=== PATIENT | female | born 1980 | race Caucasian/White ===

== ENCOUNTER 2022-04-13 15:14 | Inpatient (IN) | payer MEDICAID, SELFPAY ==
[2022-04-13 15:15] VITALS: BP 104/72; PULSE 86; RESP 16; TEMP 36.6; O2SAT 100; BMI 25.1
--- NOTE | 2022-04-13 17:08 | EX.ED.DYSGE1 ---
HPI History of Present Illness Chief Complaint: Substance Abuse Informant: patient Narrative Narrative: Patient presents requesting detox from heroin. She has been using IV heroin for the last year. She had been clean for several years prior to this but relapsed after losing her father. Last use was at 7 AM this morning. She reports use of meth only on a couple occasions in the past. Denies any other drug use. PFSH PFSH no medical history Allergy/AdvReac Type Severity Reaction Status Date / Time No Known Allergies Allergy Verified 04/13/22 15:16 Surgical History History of partial hysterectomy ROS ROS ED Constitutional Constitutional ED: Denies chills or fever(s) Eyes Eyes: Denies change in vision or discharge from eye(s) ENT ENT ED: Denies discharge from eye(s), rhinorrhea or sore throat Cardiovascular Cardiovascular: Denies chest pain or palpitations Respiratory/Chest Respiratory/Chest: Denies cough or dyspnea Gastrointestinal Gastrointestinal: Denies abdominal pain, diarrhea, nausea or vomiting Genitourinary Genitourinary ED: Denies difficulty urinating or dysuria Musculoskeletal Musculoskeletal: Denies back pain or extremity pain Integumentary Denies Abrasions or rash Neurologic Neurologic: Denies headache(s) or weakness Psychiatric Psychiatric: Denies anxiety or depression Allergic/Immunologic Allergic/Immunologic ED: Denies lip swelling or urticaria EXAM Physical Exam Const Vital Signs: 04/13/22 15:15 Temperature 97.8 F Temperature Source Temporal Pulse Rate 86 Respiratory Rate 16 Blood Pressure 104/72 Blood Pressure Mean 82 Pulse Ox 100 Oxygen Delivery Method Room Air Positive well nourished and well developed General Appearance ED: well developed HEENT Reports moist mucous membranes Eyes PERRL and EOMs intact bilaterally Neck no lymphadenopathy Chest Wall inspection of chest normal and palpation of chest normal Resp normal respiratory effort and clear to auscultation bilaterally Cardio regular rate and regular rhythm GI normal to inspection, nondistended, normoactive bowel sounds Extremity Extremity Narrative: Dry skin noted to the left lower extremity. No open wounds. Neuro oriented x3 Psych mental status grossly normal MDM MDM MDM Narrative Medical decision making narrative: Patient denies possibility of . She verbally agrees to the requirements for the detox program. Lab work has been ordered and I will speak with the hospitalist. Discharge Plan Triage Chief Complaint: Substance Abuse ED Provider: Randee Ferraro Dx/Rx/DC Orders Clinical Impression: Heroin abuse, Desire for detoxification Primary Care Provider: NOT,DEFINED Referrals: NOT,DEFINED [Primary Care Provider] - Disposition Disposition: Acute Care Hospital [facility]
--- NOTE | 2022-04-13 17:21 | NURSING ---
MED SURG DEYA DETOX, OPIATE ABUSE
[2022-04-13 17:25] LABS: Amphetamine Urine VISTA POSITIVE (<1000 ng/mL); Barbiturate Urine VISTA NEGATIVE (< 200 ng/mL); Benzodiazepine Urine VISTA POSITIVE (< 200 ng/mL); Cocaine Urine VISTA NEGATIVE (< 300 ng/mL); Ecstacy Urine VISTA POSITIVE (< 500 ng/mL); Methadone Urine VISTA NEGATIVE (< 300 ng/mL); PCP Urine VISTA NEGATIVE (< 25 ng/mL); THC Urine VISTA NEGATIVE (< 50 ng/mL); Vista UDS pH Range 7
--- NOTE | 2022-04-13 17:45 | CM.ED ---
ADELITA UREÑA Note Referral Reason: [facility] Referral Source: Case Find ADELITA met with patient to discuss the [facility] program. Patient reports they are detoxing from heroin and meth. Patient reports her girlfriend brought her to the ED and left. Patient said that her last detox program was in [facility]. Patient said that she last used at 7ish this morning. Patient is from [facility]. Patient said that she wants to sign a ZOHREH so her PO Zelda Deleon from [facility] can be advised that patient is here at the hospital for detox. Patient signed ZOHREH for [facility] PO Zelda Deleon or designated individual (copy placed in chart) . Patient was advised that the [facility] program includes no outside food or visitors, no phone access and all personal items are secured. ADELITA called Treatment Navigator and updated her regarding patient?s admission to [facility]. Plan: EVERT ORTEZ
[2022-04-13 17:52] VITALS: BP 84/56; PULSE 86; RESP 16; TEMP 36.6; O2SAT 99
[2022-04-13 18:12] VITALS: BP 93/60
--- NOTE | 2022-04-13 18:21 | ED.RN ---
PT STUCK MULTIPLE TIMES FOR BLOOD UNSUCCESSFUL. LAB ATTEMPTED AND NO SUCCESSFUL EITHER. PER DR Rai, NO LABS NEEDED AT THIS TIME. SWITCHED TO URINE.
[2022-04-13 18:31] LABS: Internal QC Validated? YES +Cl - CLEAR BKGD; Pregnancy, Urine Negative Negative
--- NOTE | 2022-04-13 18:47 | PCM.HP.STD ---
HPI - General General Date of Admission: 04/13/22 Date of Service: 04/13/22 Chief Complaint: Acute opiate withdrawal, request for detox services HPI Narrative SIMON DURON, is a 41 F who presents to the ER at [facility] requesting services for opiate detox, the last time she used any injectable heroin was 7:00 this morning, she uses IV methamphetamines occasionally. Patient denies any chronic alcohol usage. Patient is complaining of feeling nervous and nauseated. She has been through detox services at another facility in the past. Patient denies any chronic medical problems except for being positive for hep C-she has not been treated for it. Patient's tox screen in the emergency room was positive for opiates, amphetamines, and the MA, and benzodiazepines. Patient will be admitted into the opiate detox program at [facility], she will be seen by addiction social work assistant tomorrow [facility] Medical History (Updated 04/13/22 @ 18:00 by Ana Barragan) Hepatitis C Medical History no medical history Home Medications NK 04/13/22 [History Last Taken Unknown] Allergy/AdvReac Type Severity Reaction Status Date / Time No Known Allergies Allergy Verified 04/13/22 15:16 Surgical History History of partial hysterectomy Social History Smoking Status: Current every day smoker tobacco type: cigarettes ROS Constitutional Constitutional: Reports malaise; Denies anorexia, change in weight, fever(s), night sweats or weakness Eyes Eyes: Denies blurry vision, change in vision, discharge from eye(s) or eye pain Cardiovascular Cardiovascular: Denies chest pain, claudication, edema or palpitations Respiratory/Chest Respiratory/Chest: Denies cough, hemoptysis, shortness of breath at rest or shortness of breath with exertion Gastrointestinal Gastrointestinal: Denies abdominal pain, constipation, diarrhea, hematemesis, hematochezia, melena, nausea or vomiting Genitourinary Genitourinary: Denies difficulty urinating, dysuria, hematuria, nocturia, urinary frequency, urinary hesitancy, urinary incontinence or urinary urgency Musculoskeletal Musculoskeletal: Denies back pain, joint pain, joint stiffness, joint swelling, myalgias or neck pain Neurologic Neurologic: Denies abnormal gait, abnormal speech, dizziness, focal weakness, headache(s), loss of vision, numbness, other visual disturbances, paresthesias, syncope or tingling Psychiatric Psychiatric: Reports anxiety and irritability; Denies cognitive impairment, depression, mood swings or suicidal ideation Endocrine Endocrinology: Denies change in body appearance, cold intolerance, excessive sweating, heat intolerance, polydipsia or polyuria Hematologic/Lymphatic Hematologic/Lymphatic: Denies none, anemia, easy bleeding, easy bruising or lymphadenopathy Allergic/Immunologic Allergic/Immunologic: Denies rhinitis, urticaria, eczemia or asthma Vital Signs Vital Signs Vital Signs: 04/13/22 15:15 04/13/22 17:52 04/13/22 18:12 Temperature 97.8 F 97.8 F Temperature Source Temporal Temporal Pulse Rate 86 86 Respiratory Rate 16 16 Blood Pressure 104/72 84/56 L 93/60 Blood Pressure Mean 82 65 71 Pulse Ox 100 99 Oxygen Delivery Method Room Air Room Air Weight Weight: 64.41 kg Body Mass Index (BMI) 25.1 Physical Exam Const alert and oriented x3 Constitutional Narrative: Patient appears anxious at the time my examination, she responded appropriately to questions, she did not appear to be agitated General Appearance: cooperative, well kempt and well developed Orientation / Consciousness: awake, oriented to person, oriented to place and oriented to time HEENT normocephalic, head/scalp atraumatic, hearing grossly normal bilaterally and moist oral mucous membranes Eyes PERRL, EOMs intact bilaterally and conjunctivae normal Neck supple, no JVD, thyroid normal and no carotid bruits General: trachea midline Resp normal respiratory effort and clear to auscultation bilaterally Auscultation: Negative for rales, rhonchi or wheezes Cardio regular rate, regular rhythm, no murmurs, no rub and no gallops GI normal to inspection, nondistended, normoactive bowel sounds, soft to palpation, non-tender and non-distended Extremity Extremity Narrative: Patient has some old ecchymotic areas on the back of her left lower leg, she has a healing excoriated area on the outer aspect of the left lower leg which is approximately 2 and half centimeters in diameter, no discharge is noted from the area Skin Skin Narrative: Patient has an old healing excoriated area over the lateral aspect of the left lower leg Neuro oriented x3, CN's II-XII intact bilaterally, no focal motor deficits and no sensory deficits noted Sensorium / Orientation: awake, alert, oriented to person, oriented to place and oriented to time Speech: speech normal Psych Psych Narrative: Patient appears mildly anxious and nervous Results Lab / Micro Data Labs: Laboratory Results - last 24 hr 04/13/22 17:00: Urine Opiates Screen POSITIVE H, Urine Methadone Screen NEGATIVE, Ur Barbiturates Screen NEGATIVE, Ur Phencyclidine Scrn NEGATIVE, Ur Amphetamines Screen POSITIVE H, MDMA (Ecstasy) Screen POSITIVE H, U Benzodiazepines Scrn POSITIVE H, Urine Cocaine Screen NEGATIVE, U Cannabinoids Screen NEGATIVE, Ur Drug Screen Comment 04/13/22 17:00: Urine Test Negative Micro: Microbiology 04/13/22 17:00 Nasal Secretion SARS-CoV-2 Antigen (Rapid) - Final Assessment & Plan Assessment/Plan (1) Desire for detoxification: PLAN: Plan 1. Acute opiate withdrawal-patient will be admitted to [facility] 3, orders were entered using the opiate detox order set, she will be seen by addiction social work assistant tomorrow #2 Polydrug abuse-patient's talk screen was positive for amphetamines, benzodiazepines, and MDMA-complicates care, management, recovery, and prognosis #3 chronic heroin abuse-patient will be seen by addiction social work assistant, again orders were entered using the opiate detox order set #4 positive hep C-according to patient, patient has been instructed to have follow-up as an outpatient regarding this #5 healing left lower leg wound from recent spider bite-patient states she was in the hospital in [place] for an infection to her left lower leg, this area appears to be healing adequately, she does have some bruising of back of her left leg-etiology for the bruising is unknown to me, there is no overt swelling of the left leg noted. Total clinical time spent by myself addressing the patient's medical issues, reviewing her medical data, and collaborating with patient's care team: 55 minutes Charges/Coding Visit Charges Inpatient E&M: 77440 Init Hosp L2
[2022-04-13 19:17] VITALS: BMI 25.1
[2022-04-13 19:22] VITALS: PULSE 70
[2022-04-13 20:50] VITALS: BP 88/40; PULSE 61; RESP 12; TEMP 36.4; O2SAT 97
[2022-04-14 02:58] VITALS: BP 82/47; PULSE 67; RESP 14; TEMP 36.7; O2SAT 95
--- NOTE | 2022-04-14 07:11 | PN.HOSP_ITS ---
Subjective Subjective Feels tired. Objective Data Objective Data Vital Signs: Vital Signs Temp Pulse Resp BP Pulse Ox O2 Del Method 36.7 C 67 14 82/47 L 95 Room Air 04/14/22 02:58 04/14/22 02:58 04/14/22 02:58 04/14/22 02:58 04/14/22 02:58 04/14/22 02:58 Oxygen Delivery Method Room Air Weight: 64.41 kg Body Mass Index (BMI) 25.1 Lab / Micro Data Labs: Laboratory Results - last 24 hr 04/13/22 17:00: Urine Opiates Screen POSITIVE H, Urine Methadone Screen NE GATIVE, Ur Barbiturates Screen NEGATIVE, Ur Phencyclidine Scrn NEGATIVE, Ur Amphetamines Screen POSITIVE H, MDMA (Ecstasy) Screen POSITIVE H, U Benzodiazepines Scrn POSITIVE H, Urine Cocaine Screen NEGATIVE, U Cannabinoids Screen NEGATIVE, Ur Drug Screen Comment 04/13/22 17:00: Urine Test Negative Micro: Microbiology 04/13/22 17:00 Nasal Secretion SARS-CoV-2 Antigen (Rapid) - Final Physical Exam Const alert Constitutional Narrative: turns to go to sleep during encounter Psych Psych Narrative: flat affect Assessment & Plan Assessment/Plan (1) Opiate withdrawal: PLAN: buprenorphine taper PRN meds for somatic complaints associated with withdrawal. Plan to follow up with [facility] upon discharge PLAN: Plan Polysubstance abuse: tox screen was positive for amphetamines, benzodiazepines, and MDMA-complicates care, management, recovery, and prognosis positive hep C-according to patient, patient has been instructed to have follow- up as an outpatient regarding this healing left lower leg wound from recent spider bite-patient states she was in the hospital in [place] for an infection to her left lower leg, this area appears to be healing adequately, she does have some bruising of back of her left leg-etiology for the bruising is unknown to me, there is no overt swelling of the left leg noted. Charges/Coding Visit Charges Inpatient E&M: 96344 Subs Hosp L1
[2022-04-14 09:51] VITALS: BP 85/49; PULSE 58; RESP 16; TEMP 36.8; O2SAT 98
--- NOTE | 2022-04-14 11:48 | ADDICTION ---
This mortgage or loan underwriter met with PT to conduct ASAM, MSE, AUDIT, DUDIT assessments and to plan for d/c. PT A+Ox4 and participated actively. All assessments completed and placed in PT's chart. PT plans to f/u with [facility] in patient treatment. This worker will follow up tomorrow once approved. PT did not indicate a need for transportation post d/c from [facility].
[2022-04-14 14:29] VITALS: BP 93/68; PULSE 73; RESP 18; TEMP 36.6; O2SAT 94
[2022-04-14 20:12] VITALS: BP 87/51; PULSE 65; RESP 16; TEMP 37.2; O2SAT 99
[2022-04-14 20:14] VITALS: PULSE 70
[2022-04-15 02:10] VITALS: BP 88/56; PULSE 72; RESP 14; TEMP 36.8; O2SAT 99
--- NOTE | 2022-04-15 08:06 | PCM.PN.HOSP ---
Subjective Subjective Feels better. Objective Data Objective Data Vital Signs: Vital Signs Temp Pulse Resp BP Pulse Ox O2 Del Method 36.8 C 72 14 88/56 L 99 Room Air 04/15/22 02:10 04/15/22 02:10 04/15/22 02:10 04/15/22 02:10 04/15/22 02:10 04/15/22 02:10 Oxygen Delivery Method Room Air Weight: 64.41 kg Body Mass Index (BMI) 25.1 Lab / Micro Data Micro: Microbiology 04/13/22 17:00 Nasal Secretion SARS-CoV-2 Antigen (Rapid) - Final Physical Exam Const alert and no apparent distress HEENT head/scalp atraumatic and moist oral mucous membranes Psych affect normal Assessment & Plan Assessment/Plan (1) Opiate withdrawal: PLAN: buprenorphine taper PRN meds for somatic complaints associated with withdrawal. [facility] PLAN: Plan Polysubstance abuse: tox screen was positive for amphetamines, benzodiazepines, and MDMA-complicates care, management, recovery, and prognosis positive hep C-according to patient, patient has been instructed to have follow-up as an outpatient regarding this healing left lower leg wound from recent spider bite-patient states she was in the hospital in [place] for an infection to her left lower leg, this area appears to be healing adequately, she does have some bruising of back of her left leg-etiology for the bruising is unknown to me, there is no overt swelling of the left leg noted. Charges/Coding Visit Charges Inpatient E&M: 57700 Subs Hosp L1
[2022-04-15] MEDS: Methocarbamol 750 MG Tablet 1500 MG PO (10:24)
[2022-04-15 10:30] VITALS: BP 85/59; PULSE 61; RESP 18; TEMP 37; O2SAT 99
[2022-04-15] MEDS: hydrOXYzine PAM 25 MG Capsule 50 MG PO (14:56)
[2022-04-15] MEDS: Buprenorphine HCl 2 MG TAB.SUBL SL (15:07)
--- NOTE | 2022-04-15 15:45 | NURSING ---
Call to Dolores patient mother per patient wants clothes brought in for discharge monday. Message left
[2022-04-15 15:47] VITALS: BP 112/75; PULSE 77; RESP 18; TEMP 36.7; O2SAT 96
[2022-04-15] MEDS: Gabapentin 300 MG Capsule PO (19:53)
[2022-04-15 20:00] VITALS: BP 92/46; PULSE 53; RESP 16; TEMP 36.5; O2SAT 98
[2022-04-16] MEDS: Ibuprofen 600 MG Tablet PO ×3 (00:42→20:47)
[2022-04-16] MEDS: Ondansetron 8 MG Tablet PO (00:42)
[2022-04-16] MEDS: Methocarbamol 750 MG Tablet 1500 MG PO ×3 (00:43→20:47)
[2022-04-16 06:00] VITALS: BP 90/44; PULSE 56; RESP 16; TEMP 36.7; O2SAT 98
--- NOTE | 2022-04-16 08:00 | PCM.PN.HOSP ---
Subjective Subjective Feels sick. declining buprenorphine because it made her feel worse. Objective Data Objective Data Vital Signs: Vital Signs Temp Pulse Resp BP Pulse Ox O2 Del Method 36.7 C 56 L 16 90/44 L 98 Room Air 04/16/22 06:00 04/16/22 06:00 04/16/22 06:00 04/16/22 06:00 04/16/22 06:00 04/16/22 06:00 Oxygen Delivery Method Room Air Weight: 64.41 kg Body Mass Index (BMI) 25.1 Lab / Micro Data Micro: Microbiology 04/13/22 17:00 Nasal Secretion SARS-CoV-2 Antigen (Rapid) - Final Physical Exam Const alert and no apparent distress Constitutional Narrative: flat affect. Assessment & Plan Assessment/Plan (1) Opiate withdrawal: PLAN: buprenorphine taper has been refused by patient. PRN meds for somatic complaints associated with withdrawal. [facility] PLAN: Plan Polysubstance abuse: tox screen was positive for amphetamines, benzodiazepines, and MDMA-complicates care, management, recovery, and prognosis positive hep C-according to patient, patient has been instructed to have follow-up as an outpatient regarding this healing left lower leg wound from recent spider bite-patient states she was in the hospital in [place] for an infection to her left lower leg, this area appears to be healing adequately, she does have some bruising of back of her left leg-etiology for the bruising is unknown to me, there is no overt swelling of the left leg noted. Charges/Coding Visit Charges Inpatient E&M: 04794 Subs Hosp L1
[2022-04-16 09:15] VITALS: BP 105/56; PULSE 57; RESP 18; TEMP 36.8; O2SAT 97
--- NOTE | 2022-04-16 12:13 | ADDICTION ---
This web content writer attempted to meet with client for follow-up. Received information from [facility] coordinator that client is scheduled to admit to [facility] 04[facility]18/[facility]. Client is sleeping at this time.
[2022-04-16] MEDS: Dicyclomine 10 MG Capsule 20 MG PO (15:02)
[2022-04-16] MEDS: Gabapentin 300 MG Capsule PO (15:03)
[2022-04-16] MEDS: Acetaminophen 500 MG Tablet PO (15:03)
[2022-04-16 15:15] VITALS: BP 97/59; PULSE 61; RESP 18; TEMP 36.7; O2SAT 99
[2022-04-16 20:50] VITALS: PULSE 56
[2022-04-16 21:15] VITALS: BP 101/70; PULSE 56; RESP 16; TEMP 36.8; O2SAT 98
[2022-04-17] VITALS (8 sets, daily range): BP systolic 110–114; BP diastolic 60–67; PULSE 55–62; RESP 16–18; TEMP 36.6; O2SAT 95–98
[2022-04-17] MEDS: Acetaminophen 500 MG Tablet PO ×2 (01:47→22:55)
[2022-04-17] MEDS: Gabapentin 300 MG Capsule PO ×3 (01:48→23:30)
[2022-04-17] MEDS: Ondansetron 8 MG Tablet PO (05:27)
--- NOTE | 2022-04-17 08:16 | PN.HOSP_ITS ---
Subjective Subjective Feels sick. Objective Data Objective Data Vital Signs: Vital Signs Temp Pulse Resp BP Pulse Ox O2 Del Method 36.6 C 55 L 16 114/63 98 Room Air 04/17/22 03:15 04/17/22 03:15 04/17/22 03:15 04/17/22 03:15 04/17/22 03:15 04/17/22 03:15 Oxygen Delivery Method Room Air Weight: 64.41 kg Body Mass Index (BMI) 25.1 Lab / Micro Data Micro: Microbiology 04/13/22 17:00 Nasal Secretion SARS-CoV-2 Antigen (Rapid) - Final Physical Exam Const alert and no apparent distress Neuro Sensorium / Orientation: awake and alert Assessment & Plan Assessment/Plan (1) Opiate withdrawal: PLAN: buprenorphine taper has been refused by patient. I discussed with the patient that it certainly her choice to pursue whether not she wants wishes to take the buprenorphine but if she does not take it then I would not have sufficient enough justification to keep her here in the hospital as per not actively treating with anything. Patient was agreeable to using it and she did actually take it today. PRN meds for somatic complaints associated with withdrawal. Plan to follow up with [facility] upon discharge. Plan is for the patient to go to a residential program on the at some point. PLAN: Plan Polysubstance abuse: tox screen was positive for amphetamines, benzodiazepines, and MDMA-complicates care, management, recovery, and prognosis positive hep C-according to patient, patient has been instructed to have follow- up as an outpatient regarding this healing left lower leg wound from recent spider bite-patient states she was in the hospital in [place] for an infection to her left lower leg, this area appears to be healing adequately, she does have some bruising of back of her left leg-etiology for the bruising is unknown to me, there is no overt swelling of the left leg noted. Charges/Coding Visit Charges Inpatient E&M: 55053 Subs Hosp L1
[2022-04-17] MEDS: Buprenorphine HCl 2 MG TAB.SUBL SL (11:30)
[2022-04-17] MEDS: Methocarbamol 750 MG Tablet 1500 MG PO ×2 (12:05→20:32)
[2022-04-17] MEDS: hydrOXYzine PAM 25 MG Capsule 50 MG PO ×2 (12:05→20:32)
[2022-04-17] MEDS: Dicyclomine 10 MG Capsule 20 MG PO (16:05)
[2022-04-17] MEDS: Ibuprofen 600 MG Tablet PO (20:31)
[2022-04-18] MEDS: Buprenorphine HCl 2 MG TAB.SUBL SL (02:49)
[2022-04-18] MEDS: Ondansetron 8 MG Tablet PO (02:53)
[2022-04-18 03:02] VITALS: BP 105/65; PULSE 54; RESP 16; TEMP 36.6; O2SAT 98
--- NOTE | 2022-04-18 09:27 | PCM.PN.HOSP ---
Subjective Subjective Follow-up for opioid withdrawal syndrome Objective Data Objective Data Vital Signs: Vital Signs Temp Pulse Resp BP Pulse Ox O2 Del Method 97.8 F 54 L 16 105/65 98 Room Air 04/18/22 03:02 04/18/22 03:02 04/18/22 03:02 04/18/22 03:02 04/18/22 03:02 04/18/22 03:02 Oxygen Delivery Method Room Air Weight: 142 lb 0.004 oz Body Mass Index (BMI) 25.1 Lab / Micro Data Micro: Microbiology 04/13/22 17:00 Nasal Secretion SARS-CoV-2 Antigen (Rapid) - Final Physical Exam Narrative Patient still feels very anxious, restless could not sleep. Acute opioid withdrawal syndrome. Uses IV heroin. Has history of hep C General: Alert, Oriented x3, Cooperative HEENT: Atraumatic, PERRLA, EOMI, Normocephalic Oral: No Gingival or Mucosal Lesions/ Ulcerations Neck: Supple, No JVD, Negative Carotid Bruits Lungs: Air entry diminished in bilateral lung bases. No crepitation/rhonchi Cardiovascular: Regular rate, Regular Rhythm, Normal S1, Normal S2, No murmurs Abdomen: Bowel Sounds Present, Soft, Non Tender, Non-Distended : No renal angle tenderness. No suprapubic tenderness. Extremities: No edema, Capillary Refill Less than 3 Seconds Skin: No rashes, No breakdown Musculoskeletal: No Tenderness to Palpation of Joints or Extremities. ROM intact. Neurological: Cranial nerves II-XII grossly intact, DTR 2+/4 and Symmetrical, Neuro grossly intact Psych/Mental Status: Flat affect. Anxiety Assessment & Plan Assessment/Plan (1) Opiate withdrawal: PLAN: buprenorphine taper has been refused by patient. I discussed with the patient that it certainly her choice to pursue whether not she wants wishes to take the buprenorphine but if she does not take it then I would not have sufficient enough justification to keep her here in the hospital as per not actively treating with anything. Patient was agreeable to using it and she did actually take it today. PRN meds for somatic complaints associated with withdrawal. [facility] discharge. Plan is for the patient to go to a residential program on the at some point. PLAN: Plan Polysubstance abuse: tox screen was positive for amphetamines, benzodiazepines, and MDMA-complicates care, management, recovery, and prognosis positive hep C-according to patient, patient has been instructed to have follow-up as an outpatient regarding this healing left lower leg wound from recent spider bite-patient states she was in the hospital in [place] for an infection to her left lower leg, this area appears to be healing adequately, she does have some bruising of back of her left leg-etiology for the bruising is unknown to me, there is no overt swelling of the left leg noted.
[2022-04-18 09:48] VITALS: BP 89/56; PULSE 56; RESP 16; TEMP 36.8; O2SAT 100
[2022-04-18] MEDS: Methocarbamol 750 MG Tablet 1500 MG PO (09:52)
[2022-04-18] MEDS: cloNIDine HCl 0.1 MG Tablet PO (09:53)
[2022-04-18] MEDS: Gabapentin 300 MG Capsule PO (09:53)
--- NOTE | 2022-04-18 10:00 | DCINST_ITS ---
Discharge Instructions Diet Discharge Diet: No restrictions Activity Discharge Activity: Return to Normal Activity and May Not Drive Weight Bearing Status: Weight bearing as tolerated Dressing / Incision Call your doctor if you observe: Fever of 101 or Higher, Coldness, Increased Pain, Numbness or Tingling, Change in Color, Inability to urinate, Inability to have a bowel movement, Shortness of breath, Dizziness, Fainting spells, Swelling in the ankles, Chest pain, Prolonged hiccupping, Increased palpitations (irregular heartbeat) and Calf discomfort Follow Up Care When: IN 2 WEEKS Test Results: Test results from this visit will be discussed in further detail at your follow- up appointment, if applicable. Discharge Plan Admission Admit Date/Time: 04/13/22 18:35 Primary Reason for Your Visit: Acute opioid withdrawal syndrome Attending Provider: Elkin Edwards Primary Care Provider: Care Physician,No Primary Consulting Providers: Raheel Mcelroy Eric Discharge Orders/Prescriptions Prescriptions: No Action NK Referrals / Follow Up: Care Physician,No Primary [Primary Care Provider] - NOT,DEFINED [Non-Staff] - Disposition Disposition (needs filled in before D/C Order can be placed): DC/Tx to Another Type of HCF
--- NOTE | 2022-04-18 10:38 | DS.PCM_ITS ---
Providers Date of Admission: 04/13/22 Date of Discharge: 04/18/22 Primary Care Physician: No Primary Care Phys Reason For Visit: ACUTE OPIATE WITHDRAWL, OPIATE DETOX Diagnosis Discharge Diagnosis (1) Opiate withdrawal: Status: Acute Code(s): F11.93 - Opioid use, unspecified with withdrawal Plan : buprenorphine taper has been refused by patient.? I discussed with the patient that it certainly her choice to pursue whether not she wants wishes to take the buprenorphine but if she does not take it then I would not have sufficient enough justification to keep her here in the hospital as per not actively treating with anything.? Patient was agreeable to using it and she did actually take it today. PRN meds for somatic complaints associated with withdrawal. Plan to follow up with [facility] upon discharge.? Plan is for the patient to go to a residential program on the at some point. Polysubstance abuse: tox screen was positive for amphetamines, benzodiazepines, and MDMA-complicates care, management, recovery, and prognosis positive hep C-according to patient, patient has been instructed to have follow- up as an outpatient regarding this healing left lower leg wound from recent spider bite-patient states she was in the hospital in [place] for an infection to her left lower leg, this area appears to be healing adequately, she does have some bruising of back of her left leg-etiology for the bruising is unknown to me, there is no overt swelling of the left leg noted. Medications at Discharge Home Medications NK 04/13/22 Hospital Course Summary of Care Provided Hospital Course: And metformin this is 41-year-old female who was admitted for acute opioid withdrawal syndrome. Patient injects heroin, last use 7 AM on the day of admission. She also uses IV methamphetamine occasionally. Patient had nausea, nervous anxiety. U tox positive for opioids, amphetamines, methamphetamines and benzodiazepines. Her diagnosis, evaluation and management as follows: 1. Acute opiate withdrawal Syndrome with history of chronic opioid use, dependence and tolerance: Patient was admitted on [facility] floor. On buprenorphine along with other adjunctive medication as needed to control symptoms of withdrawal. During course of hospitalization, over 5 days her symptoms did not had much improvement therefore is being transferred to inpatient substance use rehab to continue medications. Patient was being evaluated by [employer] complex human resources manager, RN. #2 Polysubstance use and dependence with methamphetamine, amphetamine, and benzodiazepine:As mentioned above. Needs to continue further treatment. #3 Chronic hepatitis C: As per the patient she is hep C positive. Needs outpatient evaluation, testing and antiviral treatment. 4. Healed left lower leg wound over posterior lesion: She has dark brown to black pigmentation left. No ulcer. She had recent spider bite-patient states she was in the hospital in [place] for an infection to her left lower leg. Patient is being discharged to inpatient substance use rehab she needs further treatment with Total time spent, exact 35 minutes on discharge meds reconciliation, examinat ion, coordination of care with nurses and ancillary staff, review of imaging and blood test and discussion with the patient on follow-up instructions. Physical Exam Narrative Patient still feels very anxious, restless could not sleep.? Acute opioid withdrawal syndrome.? Uses IV heroin.? Has history of hep C General: Alert, Oriented x3, Cooperative HEENT: Atraumatic, PERRLA, EOMI, Normocephalic Oral: No Gingival or Mucosal Lesions/ Ulcerations Neck: Supple, No JVD, Negative Carotid Bruits Lungs:? Air entry diminished in bilateral lung bases.? No crepitation/rhonchi Cardiovascular: Regular rate, Regular Rhythm, Normal S1, Normal S2, No murmurs Abdomen: Bowel Sounds Present, Soft, Non Tender, Non-Distended : No renal angle tenderness.? No suprapubic tenderness. Extremities: No edema, Capillary Refill Less than 3 Seconds Skin: Healed ulcer, left with discolored, brownish-black pigmentation, 2 cm skin Musculoskeletal: No Tenderness to Palpation of Joints or Extremities.? ROM intact. Neurological: Cranial nerves II-XII grossly intact, DTR? 2+/4 and Symmetrical, Neuro grossly intact Psych/Mental Status: Flat affect.? Anxiety Weight / BMI Weight Weight: 142 lb 0.004 oz Body Mass Index (BMI) 25.1 ABG / Lab / Microbiology Data Microbiology: Microbiology 04/13/22 17:00 Nasal Secretion SARS-CoV-2 Antigen (Rapid) - Final D/C Instructions Discharge Diet: No restrictions Weight Bearing Status: Weight bearing as tolerated Call your doctor if you observe: Fever of 101 or Higher, Coldness, Increased Pain, Numbness or Tingling, Change in Color, Inability to urinate, Inability to have a bowel movement, Shortness of breath, Dizziness, Fainting spells, Swelling in the ankles, Chest pain, Prolonged hiccupping, Increased palpitations (irregular heartbeat) and Calf discomfort When: IN 2 WEEKS Meaningful Use Info Meaningful Use Diagnoses (Choose all that apply): None applicable Discharge Plan Admission Admit Date/Time: 04/13/22 18:35 Primary Reason for Your Visit: Acute opioid withdrawal syndrome Attending Provider: Elkin Edwards Primary Care Provider: Care Physician,No Primary Consulting Providers: Raheel Mcelroy ; Abhinav Villalta Discharge Orders/Prescriptions Prescriptions: No Action NK Referrals / Follow Up: Care Physician,No Primary [Primary Care Provider] - NOT,DEFINED [Non-Staff] - Disposition Disposition (needs filled in before D/C Order can be placed): DC/Tx to Another Type of HCF Charges/Coding Visit Charges Inpatient E&M: 97131 Disch Hosp >30min
== END 2022-04-18 10:47 | disposition other institution (70) | DRG 773 ==
LOC: ED 17:39 → MS3 18:50
PROVIDERS: Admitting Provider Internal Medicine; Emergency Provider Emergency Medicine; Visit Provider Internal Medicine
DX: F11.23 Opioid dependence with withdrawal (principal); F19.19 Other psychoactive substance abuse with unspecified psychoactive substance-induced disorder; B18.2 Chronic viral hepatitis C; F17.210 Nicotine dependence, cigarettes, uncomplicated; F15.90 Other stimulant use, unspecified, uncomplicated; F41.9 Anxiety disorder, unspecified
CPT/HCPCS: 80307; 81025; 87811; 99283; 99406

== ENCOUNTER 2022-04-22 10:15 | Inpatient (IN) | payer MEDICAID, SELFPAY ==
[2022-04-22] VITALS (9 sets, daily range): BP systolic 68–115; BP diastolic 46–71; PULSE 65–162; RESP 15–29; TEMP 36.1–37; O2SAT 94–100; BMI 26.5; BMI 24.7
--- NOTE | 2022-04-22 10:31 | EKG12_ITS ---
Test Reason : WEAKNESS Blood Pressure : / mmHG Vent. Rate : 115 BPM Atrial Rate : 115 BPM P-R Int : 100 ms QRS Dur : 064 ms QT Int : 308 ms P-R-T Axes : 088 077 084 degrees QTc Int : 426 ms Sinus tachycardia with short DE Nonspecific ST and T wave abnormality Abnormal ECG Confirmed by GILBERT GONZALEZ, LILY ([id number]), news videotape editor ANALISA WHITMORE ([id number]) on 04/25/2022 9:20:50 AM Referred By: Confirmed By:LILY HUNT MD
--- NOTE | 2022-04-22 10:31 | EX.ED.DYSGE1 ---
HPI History of Present Illness Chief Complaint: Weakness Informant: patient Onset/Context/Timing Onset: Today Context: Gradual Onset Timing: Intermittent Current Severity: Mild Maximum Severity: Mild Associated Symptoms Associated Symptoms ED: Negative for abdominal pain Narrative Narrative: 42-year-old female recently admitted and was hospitalized for 5 or 6 days for detox for substance abuse including IV heroin, IV benzodiazepines amphetamines. States that today she had a near syncopal event and her ears are ringing. She denies any chest pain or shortness of breath. She denies any nausea, vomiting or diarrhea. She did have nausea and vomiting last night. Denies any fever. Prior similar symptoms: No Recent Illness/Hospitalization: Yes PFSH PFS Medical History Hepatitis C Home Medications alprazolam 2 mg tablet 2 mg PO BID ANXIETY 04/22/22 [History Last Taken Unknown] methocarbamol 750 mg tablet 750 mg PO TID MUSCLE SPASM 04/22/22 [History Last Taken 04/22/22] ondansetron HCl 8 mg tablet 8 mg PO TID PRN Nausea 04/22/22 [History Last Taken 04/22/22] Allergy/AdvReac Type Severity Reaction Status Date / Time No Known Allergies Allergy Verified 04/13/22 15:16 Surgical History History of partial hysterectomy Social History Smoking Status: Current every day smoker tobacco type: cigarettes and e-cigarettes ROS ROS ED ROS Narrative Nausea and vomiting resolved. Near syncope. Review of Systems ROS Unobtainable: Denies due to encephalopathy Constitutional Constitutional ED: Denies anorexia Eyes Eyes: Denies bloody eye or loss of peripheral vision ENT ENT ED: Denies bloody eye or ear discharge Cardiovascular Cardiovascular: Denies abdominal pain Respiratory/Chest Respiratory/Chest: Denies chest congestion, chest tightness or cough Gastrointestinal Gastrointestinal: Denies abdominal pain Genitourinary Genitourinary ED: Denies dribbling or low back pain Musculoskeletal Musculoskeletal: Denies difficulty walking Integumentary Denies change in hair Psychiatric Psychiatric: Reports anxiety Endocrine Endocrinology: Denies deepening of the voice or palpitations Hematologic/Lymphatic Hematologic/Lymphatic: Reports none Allergic/Immunologic Allergic/Immunologic ED: Denies lip swelling or mouth swelling EXAM Physical Exam Narrative Exam Narrative: 42-year-old female no acute distress. Vital signs stable afebrile. H EENT exam unremarkable. Moist Riis members. Facial piercings. No signs of trauma. Neck nontender no JVD. No lymphadenopathy. Lungs clear to auscultation bilaterally. Heart tachycardic rate about 115. No murmur. Chest were nontender. Abdomen soft nontender. Moving all 4 extremities. Calves are nontender without edema or cords. No abscess. No cellulitis. Track griffin in her thighs. Moving all 4 extremities. Nontender no edema. Back nontender. Neurologically she is awake and alert with no focal motor deficits. Const Vital Signs: 04/22/22 10:15 04/22/22 11:11 04/22/22 12:50 Temperature 97.4 F L Temperature Source Oral Pulse Rate 127 H 127 H Pulse Rate [Lying] 125 H Pulse Rate [Sitting (for 1 minute prior to obtaining)] 143 H Pulse Rate [Standing (for 1 minute prior to obtaining)] 162 H Respiratory Rate 29 H 17 Respiratory Effort Respiratory Pattern Blood Pressure 103/66 104/67 Blood Pressure [Lying] 95/66 Blood Pressure [Sitting (for 1 minute prior to obtaining)] 93/67 Blood Pressure [Standing (for 1 minute prior to obtaining)] 68/46 L Blood Pressure Mean 78 79 Blood Pressure Mean [Lying] 75 Blood Pressure Mean [Sitting (for 1 minute prior to obtaining)] 75 Blood Pressure Mean [Standing (for 1 minute prior to obtaining)] 53 Pulse Ox 100 96 Oxygen Delivery Method Room Air 04/22/22 12:53 04/22/22 14:16 04/22/22 15:36 Temperature Temperature Source Pulse Rate 74 90 Pulse Rate [Lying] Pulse Rate [Sitting (for 1 minute prior to obtaining)] Pulse Rate [Standing (for 1 minute prior to obtaining)] Respiratory Rate 16 15 Respiratory Effort Normal Non-Labored Respiratory Pattern Normal Blood Pressure 92/53 L 104/63 Blood Pressure [Lying] Blood Pressure [Sitting (for 1 minute prior to obtaining)] Blood Pressure [Standing (for 1 minute prior to obtaining)] Blood Pressure Mean 66 76 Blood Pressure Mean [Lying] Blood Pressure Mean [Sitting (for 1 minute prior to obtaining)] Blood Pressure Mean [Standing (for 1 minute prior to obtaining)] Pulse Ox 100 99 Oxygen Delivery Method Room Air Room Air Positive well nourished, well developed and oriented x3; Negative for obese, cachectic, contractures, unkempt or alert General Appearance ED: well developed; Negative for unkempt, cachectic or contractures Nutritional Appearance: Negative for cachectic or obese HEENT Reports normocephalic, head/scalp atraumatic and moist oral mucous membranes normocephalic Face and Sinus: normal facial exam Throat: posterior oropharynx normal Eyes PERRL, EOMs intact bilaterally, conjunctivae normal and no scleral icterus General Eye ED: Yes normal appearance of both eyes Eyelid: eyelids normal Conjunctiva: conjunctiva normal Sclera: sclera normal Pupil: PERRL Neck full ROM, No nuchal rigidity, no lymphadenopathy, supple, no meningeal signs and no JVD Lymph Lymphatic: no lymphadenopathy noted and no lymphedema noted; Negative for lymphedema Chest Wall inspection of chest normal and palpation of chest normal Resp normal respiratory effort, normal air movement, no retractions, no use of accessory muscles and clear to auscultation bilaterally Effort and Inspection: able to speak in complete sentences Cardio regular rhythm, S1 normal heart sound, S2 normal heart sound, no murmurs, no rub, no gallops, no clicks, no JVD and peripheral pulses 2+ throughout; Negative for regular rate or diaphoretic Rate: tachycardic; Negative for regular rate Rhythm: regular rhythm Heart Sounds: S1 normal GI normal to inspection, nondistended, normoactive bowel sounds, soft to palpation, non-tender, non-distended, no masses and no bruits Auscultation: normoactive bowel sounds Palpation: soft; Negative for firm, tender or guarding Back/Spine no CVA tenderness, normal ROM, normal to inspection, thoracic and lumbar spine normal to inspection, no thoracic nor lumbar tenderness and thoraco-lumbar ROM normal Extremity normal to inspection, full ROM, normal capillary refill, no joint enlargement, no clubbing, cyanosis or edema, no calf tenderness and no pedal edema Neuro oriented x3, CN's II-XII intact bilaterally, moves all extremities, no focal motor deficits and no sensory deficits noted Sensorium / Orientation: awake, alert, oriented to person, oriented to place and oriented to time; Negative for confused Meningeal Signs: no meningeal signs Motor Exam: strength 5/5 throughout Psych mental status grossly normal, thought process normal, cooperative, affect normal, speech normal and activity/motor behavior normal Appearance: grossly normal; Negative for unkempt Attitude: engaged Speech: normal speech Mood & Affect: euthymic mood Thought Process: normal thought process Thought Content: normal thought content Skin no rashes or lesions noted and no wounds General Skin Exam: no breakdown Lesions: no lesions Rashes: no rashes Trauma: no lacerations or abrasions MDM MDM MDM Narrative Medical decision making narrative: 42-year-old recent detox history of polysubstance abuse had a near syncopal episode. Exam is benign other than tachycardia. Screening labs will be obtained. Clinically concern for possible dysrhythmia Changes unlikely. This could be anxiety or even withdrawal. But she should have been through withdrawal now Cicily been clean for the last 6 or so days. Repeat exam patient's home lying in bed does not feel well. She has become hypotensive her pressure was 91/68 when I was in the room. She will be given a liter of fluid because clinically I think she is dehydrated and her labs are consistent with dehydration. We are waiting on a urinalysis. I did look at both TMs are normal. As are the canals. Her thighs where she injects there is no signs of abscess or cellulitis. Currently she has no source of specific infection. Multiple repeat exams after liter of fluid her hypotension has responded to her current pressures 104/71. She is resting comfortably. She and I discussed her test results. I do not have a specific source. She will be treated as SIRS. Started on IV Zosyn. Second liter normal saline. Hospitalist is on page for admission. Lab Data Attestation: I reviewed the patient's lab results. Lab results narrative: CBC shows an elevated white count of 17.2. H&H 11.6 and 33.8. Platelets 340. Electrolytes show a gap of 7. BUN 32 creatinine 0.6 consistent with dehydration. Liver enzymes unremarkable. Glucose is elevated at 126. Chest x-ray negative. Urinalysis negative. No white or red cells. There is 3+ bacteria. No nitrites. Urine culture sent. Lactic acid is a 2.8. Chest x-ray is negative. Labs: Laboratory Results - last 24 hr 04/22/22 04/22/22 04/22/22 11:40 11:40 12:40 WBC 17.2 H RBC 3.88 L Hgb 11.6 L Hct 33.8 L MCV 87.1 MCH 29.9 MCHC 34.3 RDW Std Deviation 40.0 RDW Coeff of [place] 12.6 Plt Count 340 MPV 10.4 Immature Gran % (Auto) 1.000 H Neut % (Auto) 74.1 H Lymph % (Auto) 20.0 [place] % (Auto) 4.7 Eos % (Auto) 0.0 Baso % (Auto) 0.2 Absolute Neuts (auto) 12.7 H Absolute Lymphs (auto) 3.43 Nucleated RBC % 0 Sodium 139 Potassium 3.9 Chloride 108 H Carbon Dioxide 24.0 Anion Gap 7 BUN 32 H Creatinine 0.64 Estim Creat Clear Calc 94.72 Est GFR (MDRD) Af Amer 132 Est GFR (MDRD) Non-Af 109 BUN/Creatinine Ratio 50.2 H Glucose 126 H Lactic Acid Calcium 8.5 Total Bilirubin 0.30 AST 14 L ALT 31 Alkaline Phosphatase 47 Total Protein 6.4 Albumin 2.8 L Globulin 3.6 Albumin/Globulin Ratio 0.8 L Urine Color Yellow Urine Clarity Sl. Cloudy Urine pH 6.0 Ur Specific [place] 1.015 Urine Protein 15 H Urine Glucose (UA) Normal Urine Ketones Negative Urine Occult Blood 10 H Urine Nitrite Negative Urine Bilirubin Negative Urine Urobilinogen Normal Ur Leukocyte Esterase 100 H Urine RBC 0-5 SEEN Urine WBC 0-5 SEEN Ur Squamous Epith Cells 0-5 SEEN Ur Transition Epith Cell 0-5 SEEN Urine Bacteria 3+ Urine Mucus 0 SEEN 04/22/22 12:41 WBC RBC Hgb Hct MCV MCH MCHC RDW Std Deviation RDW Coeff of [place] Plt Count MPV Immature Gran % (Auto) Neut % (Auto) Lymph % (Auto) [place] % (Auto) Eos % (Auto) Baso % (Auto) Absolute Neuts (auto) Absolute Lymphs (auto) Nucleated RBC % Sodium Potassium Chloride Carbon Dioxide Anion Gap BUN Creatinine Estim Creat Clear Calc Est GFR (MDRD) Af Amer Est GFR (MDRD) Non-Af BUN/Creatinine Ratio Glucose Lactic Acid 2.8 H* Calcium Total Bilirubin AST ALT Alkaline Phosphatase Total Protein Albumin Globulin Albumin/Globulin Ratio Urine Color Urine Clarity Urine pH Ur Specific [place] Urine Protein Urine Glucose (UA) Urine Ketones Urine Occult Blood Urine Nitrite Urine Bilirubin Urine Urobilinogen Ur Leukocyte Esterase Urine RBC Urine WBC Ur Squamous Epith Cells Ur Transition Epith Cell Urine Bacteria Urine Mucus Radiography Chest X-Ray - ED: 1 View, Read by ED Physician, Heart, Lungs, Mediastinum, Bony Structures and No Acute Disease Diagnostic Testing: Clinical Impression(s) from Imaging Studies Chest X-Ray 04/22/22 12:06 IMPRESSION: Hyperinflation. Lungs are clear. Electronically Signed: Edin Olson MD at 12:38 EST , Chest x-ray, portable, single view, interpreted by myself shows no acute abnormality. Normal cardiac silhouette. No infiltrate. No effusion. Normal mediastinum. Rhythm Strip Rhythm Strip: Sinus Tach Rate: 115 Ectopy: None EKG Initial EKG: Attestation: I personally reviewed and interpreted this EKG as follows: Interpretation: Sinus Rhythm, No Acute Injury Pattern and Sinus Tachycardia Comments: Sinus tachycardia rate of 115 no acute signs of ST elevation. No acute signs of NM. Prior EKG tracings: not available for review Critical Care Time Critical Care Time: Yes Critical care time (excluding procedures): 30-74 minutes, Including time spent:, Discussing w/Patient &/or Family/Metal Cabinet Finisher, Discussing w/Consultants, Arranging Admission or Transfer, Performing Direct Patient Care at Bedside and - (31 min) Discharge Plan Dx/Rx/DC Orders Clinical Impression: Acute dehydration, Leukocytosis, SIRS (systemic inflammatory response syndrome), Elevated lactic acid level, History of intravenous drug abuse Disposition Disposition: Acute Care [facility]
[2022-04-22 11:51] LABS: Absolute Lymphocyte Count 3.43 X10^3/uL (0.83-4.51); Absolute Neutrophil Count 12.7 X10^3/uL (2.0-7.7); Basophil# 0.04 X10^3/uL; Basophil% 0.2 % (0-1); Hematocrit 33.8 % (37-47); Hemoglobin 11.6 g/dL (12.0-15.0); Lymphocyte # 3.43 X10^3/ul (0.83-4.51); Mean Corp Hgb Conc 34.3 g/dL (32-36); Mean Corpuscular Hgb 29.9 pg (27.0-32.0); Mean Corpuscular Volume 87.1 fL (81-99); Mean Platelet Vol. 10.4 fl (6.2-12.0); Monocyte# 0.81 X10^3/uL; Monocyte% 4.7 % (0-10); NRBC Flagged by Analyzer 0 % (0-5); Neutrophil % 74.1 % (47-70); Platelet Count 340 K/mm3 (150-450); RBC Distribution Width CV 12.6 % (11.6-14.6); Red Blood Count 3.88 M/mm3 (4.2-5.4); White Blood Count 17.2 K/mm3 (4.4-11.0)
--- NOTE | 2022-04-22 12:06 | RAD_ITS ---
STUDY: X-RAY CHEST REASON FOR EXAM: Female, 42 years old. Weakness TECHNIQUE: Single AP portable view of the chest. COMPARISON: None. FINDINGS: EKG electrodes are seen. Hyperinflation. The lungs are clear. There is no demonstrated pleural abnormality. Normal size heart. Normal mediastinum and cami. Normal visualized pulmonary arteries. Normal visualized aortic arch and descending thoracic aorta. Normal visualized thoracic spine. Normal visualized ribs, clavicles, and shoulders. There is no demonstrated abnormality of the visualized soft tissue structures of the upper abdomen. RAD/Chest 1 View (Portable) IMPRESSION: Hyperinflation. Lungs are clear. Electronically Signed: Edin Olson MD at 12:38 EST ,
[2022-04-22 12:08] LABS: ALB/GLOB Ratio 0.8 RATIO (0.9-2.4); AST(SGOT) 14 U/L (15-37); Alanine Aminotransfer ALT/SGPT 31 U/L (13-56); Albumin, Serum 2.8 g/dL (3.2-5.0); Alkaline Phosphatase 47 U/L (45-117); Anion Gap 7 (5-15); BUN 32 mg/dL (7-18); BUN/Creat Ratio 50.2 RATIO (10-20); Calcium,Total 8.5 mg/dL (8.5-10.1); Chloride 108 mmol/L (98-107); Creatinine, Serum 0.64 mg/dL (0.55-1.02); EST Glomerular Filtration Rate 109 mL/min (>60); Est Glom Filt Rate - Afr Amer 132 mL/min (>60); Estimated Creatinine Clearance 94.72 ml/min; Globulin 3.6 g/dL (2.2-4.2); Glucose 126 mg/dL (74-106); Potassium 3.9 mmol/L (3.5-5.1); Protein, Total 6.4 g/dL (6.4-8.2); Sodium Level 139 mmol/L (136-145)
[2022-04-22 12:47] LABS: Mucous, Urine 0 SEEN /hpf (<or=2+)
[2022-04-22] MEDS: 0.9% Normal Saline 1,000 ML 999 ML IV ×2 (12:52→15:26)
[2022-04-22 12:58] LABS: Color, Urine Yellow (Yellow); Glucose, Dipstick Normal (Normal); Ketone-Dipstick Negative (Negative); Leukocyte Esterase-Dipstick 100 /ul (Negative); Nitrite-Dipstick Negative (Negative); Occult Blood-Urine 10 /ul (Negative); Protein-Dipstick 15 mg/dl (Negative); Specific Gravity, Urine 1.015 (1.002-1.030); Urine Bilirubin Dipstick Negative (Negative); Urine Clarity Sl. Cloudy (Clear); Urine Urobilinogen Normal (Normal)
[2022-04-22 13:22] LABS: Red Blood Cells-Urine 0-5 SEEN /hpf (0-5); White Blood Cells 0-5 SEEN /hpf (0-5)
[2022-04-22 13:23] LABS: Bacteria 3+ /hpf (None Seen); Squamous Epithelial Cells - UA 0-5 SEEN /hpf (5-10); Transitional Epithelial - Ur 0-5 SEEN /hpf (0-5)
[2022-04-22 13:27] LABS: Lactic Acid 2.8 mmol/L (0.4-1.9)
--- NOTE | 2022-04-22 16:36 | HP.PCM.HOS_ITS ---
HPI - General General Date of Admission: 04/22/22 Date of Service: 04/22/22 Chief Complaint: chills, found herself on the floor HPI Narrative SIMON DURON, is a 42 F with a past medical history as outlined who presents via the ED on 04/22/2022 with a complaint of chills and says she found herself on the floor last night. She does not know if she passed out and states she remembers going to bed and then woke up to find herself on the floor. She was able to get up after she lay on the floor for a while. She denied any fever but said he is wearing things. She denied any headache, chest pain, palpitations, dizziness, nausea vomiting or diarrhea. Patient however tells me that today when she came into the ED she had a bowel movement which consisted of only blood. Review of systems otherwise negative. She denies ever having any bowel movement which contains blood in the past. Of note, patient also says that she last used IV heroine a few days ago. She was recently admitted for detox and states she actually feels like she is going through withdrawal right now. Vitals in the ED were blood pressure 104/63, pulse rate of 92, respiratory rate of 16 and temperature of 97.3 Fahrenheit. She was saturating at 100% on room air. CBC showed WBC of 17.2 with hemoglobin of 11.6 and platelets of 340. She had an elevated absolute neutrophil count of 12.7. Chemistry was significant for creatinine of 0.64 and lactic acid of 2.8. Urinalysis showed 100 leukocyte esterase per high-power field as well as 3+ bacteria. She has been admitted to be managed for UTI as well as probable opiate withdrawal. [facility] Medical History Hepatitis C Home Medications alprazolam 2 mg tablet 2 mg PO BID ANXIETY 04/22/22 [History Last Taken Unknown] methocarbamol 750 mg tablet 750 mg PO TID MUSCLE SPASM 04/22/22 [History Last Taken 04/22/22] ondansetron HCl 8 mg tablet 8 mg PO TID PRN Nausea 04/22/22 [History Last Taken 04/22/22] Allergy/AdvReac Type Severity Reaction Status Date / Time No Known Allergies Allergy Verified 04/13/22 15:16 Surgical History History of partial hysterectomy Social History Smoking Status: Current every day smoker tobacco type: cigarettes and e- cigarettes ROS Constitutional Constitutional: Reports chills, fatigue and malaise; Denies anorexia, fever(s) or weakness Eyes Eyes: Denies change in vision ENT HEENT: Denies dysphagia, headache(s), nasal congestion, nasal discharge, post nasal drip, sinus pressure or sore throat Cardiovascular Cardiovascular: Denies chest pain, dyspnea on exertion, edema, lightheadedness, orthopnea, palpitations, paroxysmal nocturnal dyspnea, rapid heart rate or syncope Respiratory/Chest Respiratory/Chest: Denies cough, dyspnea, productive cough, shortness of breath at rest, shortness of breath with exertion or wheezing Gastrointestinal Gastrointestinal: Reports hematochezia; Denies abdominal pain, constipation, diarrhea, dyspepsia, hematemesis, nausea or vomiting Genitourinary Genitourinary: Denies dysuria or hematuria Musculoskeletal Musculoskeletal: Denies arthralgias or back pain Neurologic Neurologic: Denies confusion, dizziness, focal weakness, headache(s), seizures or syncope Psychiatric Psychiatric: Denies anxiety Endocrine Endocrinology: Denies change in body appearance Hematologic/Lymphatic Hematologic/Lymphatic: Denies anemia Vital Signs Vital Signs Vital Signs: 04/22/22 10:15 04/22/22 11:11 04/22/22 12:50 Temperature 97.4 F L Temperature Source Oral Pulse Rate 127 H 127 H Pulse Rate [Lying] 125 H Pulse Rate [Sitting (for 1 minute prior to obtaining)] 143 H Pulse Rate [Standing (for 1 minute prior to obtaining)] 162 H Respiratory Rate 29 H 17 Respiratory Effort Respiratory Pattern Blood Pressure 103/66 104/67 Blood Pressure [Lying] 95/66 Blood Pressure [Sitting (for 1 minute prior to obtaining)] 93/67 Blood Pressure [Standing (for 1 minute prior to obtaining)] 68/46 L Blood Pressure Mean 78 79 Blood Pressure Mean [Lying] 75 Blood Pressure Mean [Sitting (for 1 minute prior to obtaining)] 75 Blood Pressure Mean [Standing (for 1 minute prior to obtaining)] 53 Pulse Ox 100 96 Oxygen Delivery Method Room Air 04/22/22 12:53 04/22/22 14:16 04/22/22 15:36 Temperature Temperature Source Pulse Rate 74 90 Pulse Rate [Lying] Pulse Rate [Sitting (for 1 minute prior to obtaining)] Pulse Rate [Standing (for 1 minute prior to obtaining)] Respiratory Rate 16 15 Respiratory Effort Normal Non-Labored Respiratory Pattern Normal Blood Pressure 92/53 L 104/63 Blood Pressure [Lying] Blood Pressure [Sitting (for 1 minute prior to obtaining)] Blood Pressure [Standing (for 1 minute prior to obtaining)] Blood Pressure Mean 66 76 Blood Pressure Mean [Lying] Blood Pressure Mean [Sitting (for 1 minute prior to obtaining)] Blood Pressure Mean [Standing (for 1 minute prior to obtaining)] Pulse Ox 100 99 Oxygen Delivery Method Room Air Room Air 04/22/22 15:42 Temperature 97.3 F L Temperature Source Temporal Pulse Rate 92 Pulse Rate [Lying] Pulse Rate [Sitting (for 1 minute prior to obtaining)] Pulse Rate [Standing (for 1 minute prior to obtaining)] Respiratory Rate 16 Respiratory Effort Respiratory Pattern Blood Pressure 104/63 Blood Pressure [Lying] Blood Pressure [Sitting (for 1 minute prior to obtaining)] Blood Pressure [Standing (for 1 minute prior to obtaining)] Blood Pressure Mean 76 Blood Pressure Mean [Lying] Blood Pressure Mean [Sitting (for 1 minute prior to obtaining)] Blood Pressure Mean [Standing (for 1 minute prior to obtaining)] Pulse Ox 100 Oxygen Delivery Method Room Air Weight Weight: 149 lb 11.102 oz Body Mass Index (BMI) 26.5 Physical Exam Const alert, oriented x3 and no apparent distress Constitutional Narrative: anxious General Appearance: cooperative HEENT normocephalic, head/scalp atraumatic, hearing grossly normal bilaterally and moist oral mucous membranes Mouth: oral and palatal mucosa normal Eyes PERRL, EOMs intact bilaterally and conjunctivae normal Neck no lymphadenopathy and supple Resp normal respiratory effort Cardio regular rate, regular rhythm, S1 normal heart sound, S2 normal heart sound and no murmurs GI normal to inspection, nondistended, normoactive bowel sounds, soft to palpation, non-tender and non-distended Extremity normal to inspection, full ROM and no clubbing, cyanosis or edema Skin Skin Narrative: no evidence of abscess or erythema at injection sites on her thighs Neuro oriented x3, CN's II-XII intact bilaterally and moves all extremities Sensorium / Orientation: awake and alert Motor Exam: strength 5/5 throughout Psych Psych Narrative: anxious Results Lab / Micro Data Result Diagrams: 04/22/22 11:40 04/22/22 11:40 Labs: Laboratory Results - last 24 hr 04/22/22 11:40: WBC 17.2 H, RBC 3.88 L, Hgb 11.6 L, Hct 33.8 L, MCV 87.1, MCH 29.9, MCHC 34.3, RDW Std Deviation 40.0, RDW Coeff of [place] 12.6, Plt Count 340, MPV 10.4, Immature Gran % (Auto) 1.000 H, Neut % (Auto) 74.1 H, Lymph % (Auto) 20.0, [place] % (Auto) 4.7, Eos % (Auto) 0.0, Baso % (Auto) 0.2, Absolute Neuts (auto) 12.7 H, Absolute Lymphs (auto) 3.43, Nucleated RBC % 0 04/22/22 11:40: Sodium 139, Potassium 3.9, Chloride 108 H, Carbon Dioxide 24.0, Anion Gap 7, BUN 32 H, Creatinine 0.64, Estim Creat Clear Calc 94.72, Est GFR (MDRD) Af Amer 132, Est GFR (MDRD) Non-Af 109, BUN/Creatinine Ratio 50.2 H, Glucose 126 H, Calcium 8.5, Total Bilirubin 0.30, AST 14 L, ALT 31, Alkaline Phosphatase 47, Total Protein 6.4, Albumin 2.8 L, Globulin 3.6, Albumin/Globulin Ratio 0.8 L 04/22/22 12:40: Urine Color Yellow, Urine Clarity Sl. Cloudy, Urine pH 6.0, Ur S pecific [place] 1.015, Urine Protein 15 H, Urine Glucose (UA) Normal, Urine K etones Negative, Urine Occult Blood 10 H, Urine Nitrite Negative, Urine Bilir ubin Negative, Urine Urobilinogen Normal, Ur Leukocyte Esterase 100 H, Urine RBC 0-5 SEEN, Urine WBC 0-5 SEEN, Ur Squamous Epith Cells 0-5 SEEN, Ur Transition Epith Cell 0-5 SEEN, Urine Bacteria 3+, Urine Mucus 0 SEEN 04/22/22 12:41: Lactic Acid 2.8 H* Rhythm Strip Rhythm Strip: Sinus Tach Rate: 115 Ectopy: None Radiology Impression Chest X-Ray 04/22/22 12:06 IMPRESSION: Hyperinflation. Lungs are clear. Electronically Signed: Edin Olson MD at 12:38 EST , Assessment & Plan Assessment/Plan (1) Acute dehydration: (2) Elevated lactic acid level: (3) Opiate withdrawal: (4) SIRS (systemic inflammatory response syndrome): (5) UTI (urinary tract infection): PLAN: Plan #SIRS due to UTI * admit to PCU * was very hypotensive on admission,with BP down in the 60s. Orthostatics was positive and resolved with IVF administration * Urinalysis shows 3+ bacteria, and wbc is elevated at 17 * given a dose of IV zosyn in the ED; will continue * get blood and urine cultures * hydrate with IVF NS @ 150cc/hr * continue to monitor orthostatics * Of no chest x-ray showed no acute cardiopulmonary pathology. * #UTI: as above #Hypotension * Likely due to decreased intake and dehydration. Blood pressure was now in the 60s on admission. She was hydrated with IV fluids. * Monitor orthostatics as orthostatics were positive. * Continue hydration with IV fluids. * #Lactic acidosis: Lactic acid was 2.8. Likely due to hypotension. Should improve with IV fluid hydration. #Rectal bleeding * patient having painless rectal bleeding * had one before admission and another episode after admission, whilst on the floor * gastroenterology consulted * hb is 11.6 * trend Hb. * #Acute opioid withdrawal * Patient claimed that she has not used any opioids in the past for 5 days. * She was recently admitted for withdrawal. She states she feels like she is go ing through withdrawal again. * We will check urine tox. * Start on opioid withdrawal protocol with buprenorphine. #History of hep C: treatment naive. Counseled that she would get treatment only once she quit using IV drugs #Anxiety: On Xanax DVT prophylaxis: SCDs Charges/Coding Visit Charges Inpatient E&M: 39374 Init Hosp L3
[2022-04-22 16:49] LABS: Reflex Lactate? Y
[2022-04-22 17:44] LABS: Lactic Acid 2.3 mmol/L (0.4-1.9)
[2022-04-22] MEDS: Gabapentin 300 MG Capsule PO (18:05)
[2022-04-22] MEDS: Acetaminophen 325 MG Tablet 650 MG PO (18:05)
[2022-04-22] MEDS: Ondansetron 4 MG/2 ML Vial IV (18:06)
[2022-04-22] MEDS: Loperamide 2 MG Capsule PO (18:06)
[2022-04-22] MEDS: 0.9% Normal Saline 1,000 ML 150 ML IV (18:06)
[2022-04-22 18:23] LABS: Amphetamine Urine VISTA NEGATIVE (<1000 ng/mL); Barbiturate Urine VISTA NEGATIVE (< 200 ng/mL); Benzodiazepine Urine VISTA NEGATIVE (< 200 ng/mL); Cocaine Urine VISTA NEGATIVE (< 300 ng/mL); Ecstacy Urine VISTA NEGATIVE (< 500 ng/mL); Methadone Urine VISTA NEGATIVE (< 300 ng/mL); PCP Urine VISTA NEGATIVE (< 25 ng/mL); THC Urine VISTA NEGATIVE (< 50 ng/mL); Vista UDS pH Range 6
[2022-04-22] MEDS: Buprenorphine HCl 2 MG TAB.SUBL SL (18:59)
[2022-04-22] MEDS: ALPRAZolam 0.5 MG Tablet 2 MG PO (21:24)
[2022-04-22] MEDS: Methocarbamol 750 MG Tablet PO (21:24)
[2022-04-23] VITALS (8 sets, daily range): BP systolic 95–102; BP diastolic 58–65; PULSE 67–109; RESP 17–18; TEMP 36.1–37.4; O2SAT 99–100
[2022-04-23] MEDS: 0.9% Normal Saline 1,000 ML 150 ML IV (03:39)
[2022-04-23] MEDS: Buprenorphine HCl 2 MG TAB.SUBL SL ×3 (03:39→18:59)
[2022-04-23] MEDS: Methocarbamol 750 MG Tablet PO ×3 (06:11→22:28)
[2022-04-23] MEDS: ALPRAZolam 0.5 MG Tablet 2 MG PO ×2 (10:11→22:43)
[2022-04-23] MEDS: levoFLOXacin 750 MG Tablet PO (11:09)
--- NOTE | 2022-04-23 13:54 | CASEMGMT ---
ADELITA met with patient. Patient reports that she is currently at the residental program at [facility]. Patient reports that at discharge she will return to [facility] residential program. SW asked if patient needs any resources and patient said that she has the phone number for [facility] when she is discharged. No other issues or concerns voiced. SW remains available. Jessie ORTEZ
[2022-04-23] MEDS: Dicyclomine 10 MG Capsule 20 MG PO (14:59)
[2022-04-23] MEDS: 0.9% Saline Lock 10 ML Syringe IV ×2 (17:06→22:27)
[2022-04-23 17:16] LABS: Absolute Lymphocyte Count 5.95 X10^3/uL (0.83-4.51); Basophil# 0.04 X10^3/uL; Basophil% 0.3 % (0-1); Eosinophil# 0.17 X10^3/uL; Eosinophils% 1.1 % (0-5); Hematocrit 25.2 % (37-47); Hemoglobin 8.1 g/dL (12.0-15.0); Lymphocyte # 5.95 X10^3/ul (0.83-4.51); Lymphocyte % 38.7 % (19-41); Mean Corp Hgb Conc 32.1 g/dL (32-36); Mean Corpuscular Hgb 29.5 pg (27.0-32.0); Mean Corpuscular Volume 91.6 fL (81-99); Mean Platelet Vol. 9.8 fl (6.2-12.0); Monocyte% 7.2 % (0-10); NRBC Flagged by Analyzer 0 % (0-5); Neutrophil # 8.01 X10^3/uL (2.7-7.7); POSITIVE DIFFERENTIAL YES; POSITIVE MORPHOLOGY YES; Platelet Count 271 K/mm3 (150-450); RBC Distribution Width CV 12.9 % (11.6-14.6); RBC Distribution Width SD 42.7 fl (35.1-43.9); Red Blood Count 2.75 M/mm3 (4.2-5.4); White Blood Count 15.4 K/mm3 (4.4-11.0)
[2022-04-23 17:24] LABS: Differential Indicated SCAN CRITERIA MET
[2022-04-23 17:31] LABS: Anion Gap 7 (5-15); BUN 11 mg/dL (7-18); BUN/Creat Ratio 17.4 RATIO (10-20); Calcium,Total 7.9 mg/dL (8.5-10.1); Chloride 109 mmol/L (98-107); Creatinine, Serum 0.63 mg/dL (0.55-1.02); EST Glomerular Filtration Rate 110 mL/min (>60); Est Glom Filt Rate - Afr Amer 133 mL/min (>60); Estimated Creatinine Clearance 96.23 ml/min; Glucose 104 mg/dL (74-106); Potassium 3.5 mmol/L (3.5-5.1); Sodium Level 142 mmol/L (136-145)
--- NOTE | 2022-04-23 17:43 | EX.PCM.CON.G ---
HPI Consult Data Date of Consult: 04/23/22 HPI Narrative Reason for Consultation: GI bleed HPI Narrative: SIMON DURON, is a 42-year-old female recently admitted and was hospitalized for 5 or 6 days for detox for substance abuse including IV heroin, IV benzodiazepines amphetamines.? States that today she had a near syncopal event and her ears are ringing.? She denies any chest pain or shortness of breath.? She denies any nausea, vomiting or diarrhea.? She did have nausea and vomiting last night.? In the ED she had a bowel movement which consisted of only blood.? Review of systems otherwise negative.? She denies ever having any bowel movement which contains blood in the past.? Of note, patient also says that she last used IV heroine a few days ago.? She was recently admitted for detox and states she actually feels like she is going through withdrawal right now. Vitals in the ED were blood pressure 104/63, pulse rate of 92, respiratory rate of 16 and temperature of 97.3 Fahrenheit.? She was saturating at 100% on room air.? CBC showed WBC of 17.2 with hemoglobin of 11.6 and platelets of 340.? She had an elevated absolute neutrophil count of 12.7.? Chemistry was significant for creatinine of 0.64 and lactic acid of 2.8.? Urinalysis showed 100 leukocyte esterase per high-power field as well as 3+ bacteria.? She has been admitted to be managed for UTI as well as probable opiate withdrawal. I am asked to see her now because her hemoglobin dropped down to 8.1. [facility] Medical History Hepatitis C Home Medications alprazolam 2 mg tablet 2 mg PO BID ANXIETY 04/22/22 [History Last Taken Unknown] methocarbamol 750 mg tablet 750 mg PO TID MUSCLE SPASM 04/22/22 [History Last Taken 04/22/22] ondansetron HCl 8 mg tablet 8 mg PO TID PRN Nausea 04/22/22 [History Last Taken 04/22/22] Allergy/AdvReac Type Severity Reaction Status Date / Time No Known Allergies Allergy Verified 04/13/22 15:16 Surgical History History of partial hysterectomy Social History Smoking Status: Current every day smoker tobacco type: cigarettes and e-cigarettes ROS Constitutional Constitutional: Reports chills, fatigue and malaise; Denies anorexia, fever(s) or weakness Eyes Eyes: Denies change in vision ENT HEENT: Denies dysphagia, headache(s), nasal congestion, nasal discharge, post nasal drip, sinus pressure or sore throat Cardiovascular Cardiovascular: Denies chest pain, dyspnea on exertion, edema, lightheadedness, orthopnea, palpitations, paroxysmal nocturnal dyspnea, rapid heart rate or syncope Respiratory/Chest Respiratory/Chest: Denies cough, dyspnea, productive cough, shortness of breath at rest, shortness of breath with exertion or wheezing Gastrointestinal Gastrointestinal: Reports hematochezia; Denies abdominal pain, constipation, diarrhea, dyspepsia, hematemesis, nausea or vomiting Genitourinary Genitourinary: Denies dysuria or hematuria Musculoskeletal Musculoskeletal: Denies arthralgias or back pain Neurologic Neurologic: Denies confusion, dizziness, focal weakness, headache(s), seizures or syncope Psychiatric Psychiatric: Denies anxiety Endocrine Endocrinology: Denies change in body appearance Hematologic/Lymphatic Hematologic/Lymphatic: Denies anemia Physical Exam Const alert, oriented x3 and no apparent distress Constitutional Narrative: anxious General Appearance: cooperative HEENT normocephalic, head/scalp atraumatic, hearing grossly normal bilaterally and moist oral mucous membranes Mouth: oral and palatal mucosa normal Eyes PERRL, EOMs intact bilaterally and conjunctivae normal Neck no lymphadenopathy and supple Resp normal respiratory effort Cardio regular rate, regular rhythm, S1 normal heart sound, S2 normal heart sound and no murmurs GI normal to inspection, nondistended, normoactive bowel sounds, soft to palpation, non-tender and non-distended Extremity normal to inspection, full ROM and no clubbing, cyanosis or edema Skin Skin Narrative: no evidence of abscess or erythema at injection sites on her thighs Neuro oriented x3, CN's II-XII intact bilaterally and moves all extremities Sensorium / Orientation: awake and alert Motor Exam: strength 5/5 throughout Psych Psych Narrative: anxious Lab / Micro Data Result Diagrams: 04/23/22 17:00 04/23/22 17:00 Labs: Laboratory Results - last 24 hr 04/22/22 12:40: Urine Opiates Screen NEGATIVE, Urine Methadone Screen NEGATIVE, Ur Barbiturates Screen NEGATIVE, Ur Phencyclidine Scrn NEGATIVE, Ur Amphetamines Screen NEGATIVE, MDMA (Ecstasy) Screen NEGATIVE, U Benzodiazepines Scrn NEGATIVE, Urine Cocaine Screen NEGATIVE, U Cannabinoids Screen NEGATIVE, Ur Drug Screen Comment 04/22/22 17:10: Lactic Acid 2.3 H* 04/23/22 17:00: WBC 15.4 H, RBC 2.75 L, Hgb 8.1 L, Hct 25.2 L, MCV 91.6 D, MCH 29.5, MCHC 32.1 D, RDW Std Deviation 42.7, RDW Coeff of [place] 12.9, Plt Count 271, MPV 9.8, Immature Gran % (Auto) 0.700, Neut % (Auto) 52.0, Lymph % (Auto) 38.7, [place] % (Auto) 7.2, Eos % (Auto) 1.1, Baso % (Auto) 0.3, Absolute Neuts (auto) 8.0 H, Absolute Lymphs (auto) 5.95 H, Nucleated RBC % 0 04/23/22 17:00: Sodium 142, Potassium 3.5, Chloride 109 H, Carbon Dioxide 26.0, Anion Gap 7, BUN 11, Creatinine 0.63, Estim Creat Clear Calc 96.23, Est GFR (MDRD) Af Amer 133, Est GFR (MDRD) Non-Af 110, BUN/Creatinine Ratio 17.4, Glucose 104, Calcium 7.9 L Micro: Microbiology 04/22/22 15:20 Urine, Clean Catch Urine Culture - Preliminary Presumptive E. coli Rhythm Strip Rhythm Strip: Sinus Tach Rate: 115 Ectopy: None Assessment & Plan Assessment/Plan (1) GI bleed: PLAN: I will get a CT scan abdomen pelvis to make sure she does not have cirrhosis. For now she can stay on a clear liquid diet. Repeat her hemoglobin. I am okay with PPI therapy IV 40 mg every 12 hours. She should undergo an upper and lower endoscopy to evaluate her upper lower GI tract as she had a significant GI bleed. Possibly on the CT scan abdomen pelvis I will be able to see if she has any diverticular disease. I will continue to follow. Charges/Coding Visit Charges Inpatient E&M: 74086 Init Hosp L3
--- NOTE | 2022-04-23 17:53 | CT_ITS ---
EXAM: CT ABDOMEN AND PELVIS WITH INTRAVENOUS CONTRAST CLINICAL INDICATION: hepatitis C and GI bleed TECHNIQUE: Helically acquired images were obtained of the abdomen and pelvis with intravenous contrast. This CT exam was performed using one or more of the following dose reduction techniques: automated exposure control, adjustment of the mA and/or kV according to patient size, and/or use of iterative reconstruction technique. This report was created using [employer] report generation technology. CONTRAST: IV 100mL [id number] COMPARISON: None. FINDINGS: LOWER THORAX: Unremarkable. Lung bases are clear. No cardiomegaly. No significant pericardial effusion. ABDOMEN: LIVER: Unremarkable. Homogeneous. No focal mass. GALLBLADDER AND BILE DUCTS: Gallbladder is contracted. No demonstrated stones. Mild pericholecystic fluid. 8 x 5 cm fluid collection inferior to the gallbladder containing gas fluid level. No intra- or extrahepatic biliary ductal dilation. PANCREAS: Unremarkable. No focal cystic or solid mass. SPLEEN: Unremarkable. Normal size without focal cystic or solid mass. Granulomatous calcifications in the spleen. Spleen is otherwise unremarkable. ADRENALS: Unremarkable. No nodules. KIDNEYS AND URETERS: Unremarkable. Normal renal size and position. No hydronephrosis. STOMACH AND BOWEL: Unremarkable. No stomach or bowel distention. No focal inflammatory change. PELVIS: APPENDIX: No evidence of acute appendicitis. BLADDER: Unremarkable. REPRODUCTIVE: Unremarkable as visualized. No mass. ABDOMEN and PELVIS: INTRAPERITONEAL SPACE: Unremarkable. No ascites or other fluid collection. No free air. BONES/JOINTS: Unremarkable. No suspicious lytic or blastic abnormality. SOFT TISSUES: Unremarkable. No discrete abdominal or pelvic wall hernia. VASCULATURE: Unremarkable. Abdominal aorta is normal in caliber. LYMPH NODES: Unremarkable. No enlarged lymph nodes. CT/Abdomen/Pelvis W IV Cont ONLY IMPRESSION: 1. Contracted gallbladder with pericholecystic fluid. Consider right upper quadrant ultrasound to evaluate for stones and sonographic Hsieh''s sign. 2. Large cystic lesion in the right upper quadrant with gas fluid level. Differential considerations include choledochal cyst, abscess. Less likely: biliary cystadenoma, gallbladder duplication. Biloma is less likely but should be considered in the appropriate clinical setting. Nonemergent MRI/MRCP is recommended for further evaluation. Electronically Signed: Marli Silver MD at 20:04 [facility] [place] Location ID and State: [id number] / Tel , Service support ,
[2022-04-23 18:04] LABS: Differential Comment SCANNED
--- NOTE | 2022-04-23 18:17 | PCM.PN.HOSP ---
Subjective Subjective Patient was seen and examined today, she was admitted yesterday for severe urinary tract infection, patient's IV access was lost this morning, I gave her dose of oral Levaquin this morning and ordered a midline catheter insertion which was done this afternoon, her CBC was repeated and it was noted that her hemoglobin was 8.1, this is a drop of approximately 3 points from admission, initially I had elected not to have GI see her because she was no longer having any evidence of bright red rectal bleeding but with the drop in hemoglobin, I contacted gastroenterology and they will see the patient today. I will place the patient on clear liquids, I placed her on an IV PPI, and I will type and cross 2 units of packed red blood cells and hold them. Objective Data Objective Data Vital Signs: Vital Signs Temp Pulse Resp BP Pulse Ox O2 Del Method 98.1 F 88 17 97/59 L 100 Room Air 04/23/22 16:50 04/23/22 16:50 04/23/22 16:50 04/23/22 16:50 04/23/22 16:50 04/23/22 16:50 Oxygen Delivery Method Room Air Weight: 63.3 kg Body Mass Index (BMI) 24.7 Intake & Output: Intake and Output for Last 24 Hours 04/21/22 04/22/22 04/23/22 23:59 23:59 23:59 Intake Total 2200 / 2200 2092.5 / 2092.5 Balance 2200 / 2200 2092.5 / 2092.5 Lab / Micro Data Result Diagrams: 04/23/22 17:00 04/23/22 17:00 Labs: Laboratory Results - last 24 hr 04/22/22 12:40: Urine Opiates Screen NEGATIVE, Urine Methadone Screen NEGATIVE, Ur Barbiturates Screen NEGATIVE, Ur Phencyclidine Scrn NEGATIVE, Ur Amphetamines Screen NEGATIVE, MDMA (Ecstasy) Screen NEGATIVE, U Benzodiazepines Scrn NEGATIVE, Urine Cocaine Screen NEGATIVE, U Cannabinoids Screen NEGATIVE 04/23/22 17:00: WBC 15.4 H, RBC 2.75 L, Hgb 8.1 L, Hct 25.2 L, MCV 91.6 D, MCH 29.5, MCHC 32.1 D, RDW Std Deviation 42.7, RDW Coeff of Carlton 12.9, Plt Count 271, MPV 9.8, Immature Gran % (Auto) 0.700, Neut % (Auto) 52.0, Lymph % (Auto) 38.7, [place] % (Auto) 7.2, Eos % (Auto) 1.1, Baso % (Auto) 0.3, Absolute Neuts (auto) 8.0 H, Absolute Lymphs (auto) 5.95 H, Nucleated RBC % 0, Differential Comment SCANNED 04/23/22 17:00: Sodium 142, Potassium 3.5, Chloride 109 H, Carbon Dioxide 26.0, Anion Gap 7, BUN 11, Creatinine 0.63, Estim Creat Clear Calc 96.23, Est GFR (MDRD) Af Amer 133, Est GFR (MDRD) Non-Af 110, BUN/Creatinine Ratio 17.4, Glucose 104, Calcium 7.9 L Micro: Microbiology 04/22/22 15:20 Urine, Clean Catch Urine Culture - Preliminary Presumptive E. coli Rhythm Strip Rhythm Strip: Sinus Tach Rate: 115 Ectopy: None Physical Exam Const alert, oriented x3, no apparent distress and average body habitus General Appearance: cooperative, well kempt and well developed Orientation / Consciousness: awake, oriented to person, oriented to place and oriented to time HEENT normocephalic, head/scalp atraumatic and moist oral mucous membranes Eyes PERRL, EOMs intact bilaterally and conjunctivae normal Neck supple, no JVD, thyroid normal and no carotid bruits General: trachea midline Resp normal respiratory effort, no retractions, no use of accessory muscles and clear to auscultation bilaterally Auscultation: Negative for rales, rhonchi or wheezes Cardio regular rate, regular rhythm, S1 normal heart sound, S2 normal heart sound, no murmurs, no rub and no gallops GI normal to inspection, nondistended, normoactive bowel sounds, soft to palpation, non-tender and non-distended Extremity normal to inspection and no clubbing, cyanosis or edema Skin no rashes or lesions noted General Skin Exam: no breakdown Neuro oriented x3, CN's II-XII intact bilaterally, moves all extremities, no focal motor deficits and no sensory deficits noted Sensorium / Orientation: awake, alert, oriented to person, oriented to place and oriented to time Speech: speech normal Psych affect normal Assessment & Plan Assessment/Plan (1) UTI (urinary tract infection): PLAN: Plan 1. Acute pyelonephritis-I have elected to place the patient on IV Rocephin now that we have IV access, this will start tomorrow morning, CBC will be monitored #2 acute lower GI bleed-etiology unclear, possibly secondary to diverticular bleed, neoplasm, polyp, or hemorrhoids-patient is being seen by gastroenterology, I will recheck the patient's hemoglobin at 10:00 tonight and perform every 6 hour H&H's on the patient, patient was placed on a PPI IV, her diet was changed to clear liquids, she was typed and crossed for 2 units of packed red blood cells and these will be held. #3 chronic opiate abuse-patient is currently in a program at [facility], she is on Suboxone while in the hospital, she states she was not given Suboxone at [facility] however. #4 panic disorder-patient is on Xanax chronically for this, it will be continued while she is in the hospital #5 lactic acidosis-etiology unclear at this point, I do not believe the patient has documented criteria for sepsis, fluids will be administered Total clinical time spent by myself addressing the patient's medical problems, reviewing all the medical data, and collaborating with patient's care team: 50 minutes Charges/Coding Visit Charges Inpatient E&M: [id number] [facility] L3
[2022-04-23] MEDS: 0.9% Normal Saline 1,000 ML 100 ML IV (18:45)
[2022-04-23 22:35] LABS: Hematocrit 23.7 % (37-47); Hemoglobin 7.8 g/dL (12.0-15.0)
[2022-04-24] VITALS (14 sets, daily range): BP systolic 90–113; BP diastolic 52–69; PULSE 90–113; RESP 16–18; TEMP 36.4–37.2; O2SAT 96–100
[2022-04-24] MEDS: 0.9% Normal Saline 1,000 ML 100 ML IV ×3 (02:07→22:21)
--- NOTE | 2022-04-24 02:12 | PCM.HOSP.N ---
Hospitalist Note Patient BP mildly low, repeat Hgb had decreased further. Given she is more symptomatic will initiate PRBC now.
[2022-04-24] MEDS: 0.9% Saline Lock 10 ML Syringe IV ×3 (04:06→17:05)
[2022-04-24] MEDS: Methocarbamol 750 MG Tablet PO ×2 (05:20→14:23)
--- NOTE | 2022-04-24 06:15 | NURSING ---
This RN took 1 tablet of Xanex 0.5mg out of [facility] went to patient to room to administer and realized order was for 4 tabs. Went back to [facility] to correct and pull correct number of tablets out. Fellow nurse had also pulled 1 tablet of 0.5mg of Xanax which put count off due to my mistake of not taking correct number of pills. I then pulled correct number of pills and notified pharmacy and charge nurse. 6 pills when I started I pulled 1 leaving 5 in [facility]. JACKIE pulled 1 leaving 4 in [facility]. I then went and corrected and pulled 3 more for a total of 4 pills. leaving 1 pill in [facility].
--- NOTE | 2022-04-24 07:55 | CT_ITS ---
EXAM: CT ABDOMEN AND PELVIS WITHOUT INTRAVENOUS CONTRAST CLINICAL INDICATION: Possible perforated duodenal ulcer. TECHNIQUE: Helically acquired images were obtained of the abdomen and pelvis without intravenous contrast. This CT exam was performed using one or more of the following dose reduction techniques: automated exposure control, adjustment of the mA and/or kV according to patient size, and/or use of iterative reconstruction technique. This report was created using [email or web address] report generation technology. CONTRAST: Oral Gastrografin RADIATION DOSE: CTDIvol = 6.39 mGy, DLP = 325.72 mGy-cm COMPARISON: CT abdomen and pelvis with IV contrast 04/15/2022. FINDINGS: LOWER THORAX: Unremarkable. Lung bases are clear. No cardiomegaly. No significant pericardial effusion. ABDOMEN: LIVER: Unremarkable. Homogeneous. GALLBLADDER AND BILE DUCTS: Unremarkable. No calcified gallstones. No gallbladder distention or wall edema. No intra- or extrahepatic biliary ductal dilation. PANCREAS: Unremarkable. No focal cystic mass. SPLEEN: Unremarkable. Normal size without focal cystic or solid mass. ADRENALS: Unremarkable. No nodules. KIDNEYS AND URETERS: Unremarkable. Normal renal size and position. No hydronephrosis. STOMACH AND BOWEL: Abnormally small and irregular contour of the descending duodenum. No stomach or bowel distention. No focal inflammatory change. PELVIS: APPENDIX: Normal. BLADDER: Unremarkable. REPRODUCTIVE: Unremarkable as visualized. No mass. ABDOMEN and PELVIS: INTRAPERITONEAL SPACE: Large extraluminal air-fluid collection behind the gallbladder. No intraperitoneal extravasation of oral Gastrografin contrast. BONES/JOINTS: Unremarkable. No suspicious lytic or blastic abnormality. SOFT TISSUES: Unremarkable. No discrete abdominal or pelvic wall hernia. VASCULATURE: Unremarkable. Abdominal aorta is non-dilated. LYMPH NODES: Unremarkable. No enlarged lymph nodes. CT/Abdomen/Pel W ORAL Cont Only IMPRESSION: 1. No intraperitoneal extravasation of oral Gastrografin contrast but abnormal duodenal bulb and descending duodenum are abnormally narrow. There is only minimal contrast irregular filling of Gastrografin contrast in the descending portion of the duodenum. This is presumably related to the extraluminal air-fluid collection behind the gallbladder. Whether this is from a perforated duodenal ulcer or not is difficult to confirm since there is no extravasation of oral Gastrografin. 2. No other additional findings or changes. Electronically Signed: Joey Styles MD at 10:46 EST ,
--- NOTE | 2022-04-24 07:57 | CON.PCM.SX_ITS ---
Assessment & Plan Assessment/Plan (1) GI bleed: (2) Intraabdominal fluid collection: PLAN: Plan I was consulted for the intra-abdominal fluid collection that was found on CT scan. The patient does report that she had been having pain since detoxifying from heroin. Patient reports that she just recently resumed a diet as she been having too much pain to eat. The CT scan ordered yesterday does show a large fluid collection with air-fluid level that seems to be between the colon, liver, duodenum, gallbladder. The duodenum does appear to have a possible cratered area on the CT scan which is adjacent to this area and there is a small air bubble adjacent to the duodenum as well. Patient is currently receiving blood for her anemia and hypotension due to GI bleeding. My differential diagnosis includes perforated duodenal ulcer with a contained abscess. I would like to obtain a CT scan today with oral contrast only to see if any contrast enters the abscess cavity. If no contrast enters the abscess cavity I would continue PPI and she may resume clear liquids and I would recommend percutaneous drainage of the fluid collection with culture tomorrow. GI is on board as well and if there is no communication found on CT scan today he is planning on performing endoscopy anyway due to her GI bleed and he will check for duodenal ulceration. Patient currently on antibiotics for possible UTI as well. Kenji Garber MD Pager: [facility] [address] [place] [address], [address] [place] [address] Office: HPI Consult Data Date of Consult: 04/24/22 HPI Narrative HPI Narrative: SIMON DURON, is a 42 F who presents with GI bleeding. The patient had marietta red blood from the rectum yesterday. The patient says that she began detoxification in March and since she started her detox she has been having central abdominal pain. She says she was unable to eat and finally started having an appetite recently. She denies nausea or vomiting. [facility] Medical History Hepatitis C Home Medications alprazolam 2 mg tablet 2 mg PO BID ANXIETY 04/22/22 [History Last Taken Unknown] methocarbamol 750 mg tablet 750 mg PO TID MUSCLE SPASM 04/22/22 [History Last Taken 04/22/22] ondansetron HCl 8 mg tablet 8 mg PO TID PRN Nausea 04/22/22 [History Last Taken 04/22/22] Allergy/AdvReac Type Severity Reaction Status Date / Time No Known Allergies Allergy Verified 04/13/22 15:16 Surgical History History of partial hysterectomy Social History Smoking Status: Current every day smoker tobacco type: cigarettes and e- cigarettes ROS Constitutional Constitutional: Reports anorexia; Denies chills, fatigue or fever(s) Eyes Eyes: Denies blurry vision ENT HEENT: Denies abnormal hearing Cardiovascular Cardiovascular: Denies chest pain Respiratory/Chest Respiratory/Chest: Denies cough Gastrointestinal Gastrointestinal: Reports abdominal pain and rectal bleeding; Denies nausea or vomiting Genitourinary Genitourinary: Denies change in urinary stream Musculoskeletal Musculoskeletal: Denies abnormal gait Integumentary Integumentary: Denies jaundice Physical Exam Const alert and oriented x3 HEENT normocephalic Eyes PERRL Resp normal respiratory effort Cardio Rate: regular rate Rhythm: regular rhythm GI soft to palpation and non-distended Palpation: tender RUQ Lab / Micro Data Result Diagrams: 04/23/22 22:22 04/23/22 17:00 Labs: Laboratory Results - last 24 hr 04/23/22 17:00: WBC 15.4 H, RBC 2.75 L, Hgb 8.1 L, Hct 25.2 L, MCV 91.6 D, MCH 29.5, MCHC 32.1 D, RDW Std Deviation 42.7, RDW Coeff of Carlton 12.9, Plt Count 271, MPV 9.8, Immature Gran % (Auto) 0.700, Neut % (Auto) 52.0, Lymph % (Auto) 38.7, [place] % (Auto) 7.2, Eos % (Auto) 1.1, Baso % (Auto) 0.3, Absolute Neuts (auto) 8.0 H, Absolute Lymphs (auto) 5.95 H, Nucleated RBC % 0, Differential Comment SCANNED 04/23/22 17:00: Sodium 142, Potassium 3.5, Chloride 109 H, Carbon Dioxide 26.0, Anion Gap 7, BUN 11, Creatinine 0.63, Estim Creat Clear Calc 96.23, Est GFR (MDRD) Af Amer 133, Est GFR (MDRD) Non-Af 110, BUN/Creatinine Ratio 17.4, Glucose 104, Calcium 7.9 L 04/23/22 22:22: Hgb 7.8 L, Hct 23.7 L 04/23/22 22:22: Blood Type B POSITIVE, Antibody Screen NEGATIVE, Crossmatch See Detail Micro: Microbiology 04/22/22 15:20 Urine, Clean Catch Urine Culture - Final Presumptive E. coli 04/22/22 13:25 Blood Culture (Wb) - Arm Left Blood Culture - Preliminary No growth in 48 hours. 04/22/22 12:41 Blood Culture (Wb) - Arm Left Blood Culture - Preliminary No growth in 48 hours. Rhythm Strip Rhythm Strip: Sinus Tach Rate: 115 Ectopy: None Radiology Impression Abdomen/Pelvis CT 04/23/22 17:53 IMPRESSION: 1. Contracted gallbladder with pericholecystic fluid. Consider right upper quadrant ultrasound to evaluate for stones and sonographic Hsieh''s sign. 2. Large cystic lesion in the right upper quadrant with gas fluid level. Differential considerations include choledochal cyst, abscess. Less likely: biliary cystadenoma, gallbladder duplication. Biloma is less likely but should be considered in the appropriate clinical setting. Nonemergent MRI/MRCP is recommended for further evaluation. Electronically Signed: Marli Silver MD at 20:04 EST Reading Location ID and State: [id number] / Tel , Service support ,
[2022-04-24] MEDS: Ceftriaxone 1 GM/50 ML BAG IV (09:49)
[2022-04-24] MEDS: Buprenorphine HCl 2 MG TAB.SUBL SL ×2 (11:05→18:38)
[2022-04-24] MEDS: ALPRAZolam 0.5 MG Tablet 2 MG PO ×2 (11:05→22:14)
[2022-04-24 11:08] LABS: Absolute Neutrophil Count 8.7 X10^3/uL (2.0-7.7); Basophil# 0.05 X10^3/uL; Basophil% 0.4 % (0-1); Eosinophil# 0.17 X10^3/uL; Eosinophils% 1.2 % (0-5); Hematocrit 33.7 % (37-47); Hemoglobin 11.5 g/dL (12.0-15.0); Lymphocyte % 28.4 % (19-41); Mean Corp Hgb Conc 34.1 g/dL (32-36); Mean Corpuscular Hgb 29.4 pg (27.0-32.0); Mean Corpuscular Volume 86.2 fL (81-99); Monocyte# 1.08 X10^3/uL; Monocyte% 7.7 % (0-10); NRBC Flagged by Analyzer 0 % (0-5); Neutrophil # 8.67 X10^3/uL (2.7-7.7); Neutrophil % 61.7 % (47-70); Platelet Count 271 K/mm3 (150-450); RBC Distribution Width CV 13.9 % (11.6-14.6); RBC Distribution Width SD 43.5 fl (35.1-43.9); Red Blood Count 3.91 M/mm3 (4.2-5.4); White Blood Count 14.1 K/mm3 (4.4-11.0)
--- NOTE | 2022-04-24 14:01 | PN_ITS ---
Progress Note After rounds we ordered a CT scan with oral contrast. It showed none of the contrast entering the abscess cavity so hopefully the source has sealed. I recommend percutaneous drainage of this abscess tomorrow. I discussed with Dr. Quigley, I believe he plans to perform an upper scope tomorrow to check for ulcer. At this time there is no signs of ongoing bleeding but this may have been the source of the bleeding as well. Kenji Garber MD Pager: [facility] [address] [place] [address], [address] [place] [address] Office:
--- NOTE | 2022-04-24 16:56 | PCM.PN.HOSP ---
Subjective Subjective Patient was seen and examined today, extensively talked with gastroenterology and also with general surgery who I had seen the patient today. Patient's CAT scan of the abdomen yesterday showed a fluid collection near the patient's gallbladder, general surgery feels that this may be a perforated duodenum with extravasation of blood, and oral contrasted CT did not show any extravasation of oral contrast into the area from the duodenum. General surgery would like the patient undergo a percutaneous drainage of the area, gastroenterology is planning on performing an EGD tomorrow. No colonoscopy is going to be performed. Patient's urine culture grew out E. coli, I placed her on Rocephin today Objective Data Objective Data Vital Signs: Vital Signs Temp Pulse Resp BP Pulse Ox O2 Del Method 98.2 F 99 17 92/52 L 99 Room Air 04/24/22 16:21 04/24/22 16:21 04/24/22 16:21 04/24/22 16:21 04/24/22 16:21 04/24/22 16:21 Oxygen Delivery Method Room Air Weight: 63.3 kg Body Mass Index (BMI) 24.7 Intake & Output: Intake and Output for Last 24 Hours 04/22/22 04/23/22 04/24/22 23:59 23:59 23:59 Intake Total 2200 / 2200 2917.5 / 2917.5 2285.00 / 2285.00 Balance 2200 / 2200 2917.5 / 2917.5 2285.00 / 2285.00 Lab / Micro Data Result Diagrams: 04/24/22 10:55 04/23/22 17:00 Labs: Laboratory Results - last 24 hr 04/23/22 17:00: WBC 15.4 H, RBC 2.75 L, Hgb 8.1 L, Hct 25.2 L, MCV 91.6 D, MCH 29.5, MCHC 32.1 D, RDW Std Deviation 42.7, RDW Coeff of Carlton 12.9, Plt Count 271, MPV 9.8, Immature Gran % (Auto) 0.700, Neut % (Auto) 52.0, Lymph % (Auto) 38.7, [place] % (Auto) 7.2, Eos % (Auto) 1.1, Baso % (Auto) 0.3, Absolute Neuts (auto) 8.0 H, Absolute Lymphs (auto) 5.95 H, Nucleated RBC % 0, Differential Comment SCANNED 04/23/22 17:00: Sodium 142, Potassium 3.5, Chloride 109 H, Carbon Dioxide 26.0, Anion Gap 7, BUN 11, Creatinine 0.63, Estim Creat Clear Calc 96.23, Est GFR (MDRD) Af Amer 133, Est GFR (MDRD) Non-Af 110, BUN/Creatinine Ratio 17.4, Glucose 104, Calcium 7.9 L 04/23/22 22:22: Hgb 7.8 L, Hct 23.7 L 04/23/22 22:22: Blood Type B POSITIVE, Antibody Screen NEGATIVE, Crossmatch See Detail 04/24/22 10:55: Hgb Cancelled, Hct Cancelled 04/24/22 10:55: WBC 14.1 H, RBC 3.91 L, Hgb 11.5 L, Hct 33.7 L, MCV 86.2 D, MCH 29.4, MCHC 34.1 D, RDW Std Deviation 43.5, RDW Coeff of Carlton 13.9, Plt Count 271, MPV 10.0, Immature Gran % (Auto) 0.600, Neut % (Auto) 61.7, Lymph % (Auto) 28.4, [place] % (Auto) 7.7, Eos % (Auto) 1.2, Baso % (Auto) 0.4, Absolute Neuts (auto) 8.7 H, Absolute Lymphs (auto) 4.00, Nucleated RBC % 0 Micro: Microbiology 04/22/22 15:20 Urine, Clean Catch Urine Culture - Final Presumptive E. coli 04/22/22 13:25 Blood Culture (Wb) - Arm Left Blood Culture - Preliminary No growth in 48 hours. 04/22/22 12:41 Blood Culture (Wb) - Arm Left Blood Culture - Preliminary No growth in 48 hours. Radiography Diagnostic Testing: Radiology Impression Abdomen/Pelvis CT 04/23/22 17:53 IMPRESSION: 1. Contracted gallbladder with pericholecystic fluid. Consider right upper quadrant ultrasound to evaluate for stones and sonographic Hsieh''s sign. 2. Large cystic lesion in the right upper quadrant with gas fluid level. Differential considerations include choledochal cyst, abscess. Less likely: biliary cystadenoma, gallbladder duplication. Biloma is less likely but should be considered in the appropriate clinical setting. Nonemergent MRI/MRCP is recommended for further evaluation. Electronically Signed: Marli Silver MD at 20:04 EST Reading Location ID and State: [id number] / Tel , Service support , Abdomen CT 04/24/22 07:55 IMPRESSION: 1. No intraperitoneal extravasation of oral Gastrografin contrast but abnormal duodenal bulb and descending duodenum are abnormally narrow. There is only minimal contrast irregular filling of Gastrografin contrast in the descending portion of the duodenum. This is presumably related to the extraluminal air-fluid collection behind the gallbladder. Whether this is from a perforated duodenal ulcer or not is difficult to confirm since there is no extravasation of oral Gastrografin. 2. No other additional findings or changes. Electronically Signed: Joey Styles MD at 10:46 EST , Rhythm Strip Rhythm Strip: Sinus Tach Rate: 115 Ectopy: None Physical Exam Const alert, oriented x3, no apparent distress, average body habitus and healthy appearing General Appearance: cooperative, well kempt and well developed Orientation / Consciousness: awake, oriented to person, oriented to place and oriented to time HEENT normocephalic, head/scalp atraumatic and moist oral mucous membranes Eyes PERRL, EOMs intact bilaterally and conjunctivae normal Neck supple, no JVD, thyroid normal and no carotid bruits General: trachea midline Resp normal respiratory effort, no retractions, no use of accessory muscles and clear to auscultation bilaterally Auscultation: Negative for rales, rhonchi or wheezes Cardio regular rate, regular rhythm, S1 normal heart sound, S2 normal heart sound, no murmurs, no rub and no gallops GI normal to inspection, nondistended, normoactive bowel sounds, soft to palpation, non-tender and non-distended Extremity no clubbing, cyanosis or edema Skin no rashes or lesions noted General Skin Exam: no breakdown Neuro oriented x3, CN's II-XII intact bilaterally, moves all extremities, no focal motor deficits and no sensory deficits noted Sensorium / Orientation: awake and alert Speech: speech normal Psych affect normal Assessment & Plan Assessment/Plan (1) UTI (urinary tract infection): PLAN: Plan 1. Acute pyelonephritis-from E. coli-patient was placed on Rocephin today, her white blood cell count is improving #2 acute lower GI bleed-etiology unclear, possibly secondary to bleed from a duodenal ulcer-patient will have an EGD tomorrow #3 chronic opiate abuse-patient is currently in a program at [facility], she is on Suboxone while in the hospital, she states she was not given Suboxone at [facility] however. #4 panic disorder-patient is on Xanax chronically for this, it will be continued while she is in the hospital #5 lactic acidosis-etiology unclear at this point, I do not believe the patient has documented criteria for sepsis, fluids will be administered #6 fluid collection in the right upper quadrant-possibly secondary to perforation of duodenum from duodenal ulcer, patient will undergo percutaneous drainage and insertion of a drain in the area tomorrow #7 acute blood loss anemia requiring blood transfusion-patient's hemoglobin today was 11.5 Total clinical time spent by myself addressing the patient's medical problems, reviewing all the medical data, and collaborating with patient's care team: 50 minutes Charges/Coding Visit Charges Inpatient E&M: [id number] [facility] L3
[2022-04-24 17:02] LABS: International Normalized Ratio 1.2; Prothrombin Time (Protime)PT. 15.1 SECONDS (11.7-14.9)
[2022-04-24 17:03] LABS: Partial Thromboplast Time 23.6 Seconds (24.1-36.2)
[2022-04-25] VITALS (16 sets, daily range): BP systolic 91–117; BP diastolic 59–82; PULSE 65–92; RESP 12–21; TEMP 36.3–36.8; O2SAT 96–100; BMI 24.5
--- NOTE | 2022-04-25 05:55 | EKG12_ITS ---
Test Reason : AM EKG Blood Pressure : / mmHG Vent. Rate : 071 BPM Atrial Rate : 071 BPM P-R Int : 118 ms QRS Dur : 066 ms QT Int : 390 ms P-R-T Axes : 060 067 065 degrees QTc Int : 423 ms Normal sinus rhythm Normal ECG When compared with ECG of 22-APR-2022 10:38, MANUAL COMPARISON REQUIRED, DATA IS UNCONFIRMED Confirmed by MARK ANTHONY GONZALEZ, JOSÉ MIGUEL ([id number]), offline editor ANALISA WHITMORE ([id number]) on 04/29/2022 9:02:51 AM Referred By: Confirmed By:CARLENE HOPSON MD
[2022-04-25 07:15] LABS: Absolute Lymphocyte Count 3.57 X10^3/uL (0.83-4.51); Absolute Neutrophil Count 3.7 X10^3/uL (2.0-7.7); Basophil# 0.03 X10^3/uL; Basophil% 0.4 % (0-1); Eosinophil# 0.29 X10^3/uL; Eosinophils% 3.5 % (0-5); Hematocrit 31.7 % (37-47); Hemoglobin 10.5 g/dL (12.0-15.0); Lymphocyte # 3.57 X10^3/ul (0.83-4.51); Lymphocyte % 43.6 % (19-41); Mean Corp Hgb Conc 33.1 g/dL (32-36); Mean Corpuscular Volume 87.6 fL (81-99); Monocyte# 0.52 X10^3/uL; Monocyte% 6.3 % (0-10); NRBC Flagged by Analyzer 0 % (0-5); Neutrophil # 3.71 X10^3/uL (2.7-7.7); Neutrophil % 45.3 % (47-70); Platelet Count 235 K/mm3 (150-450); RBC Distribution Width CV 13.8 % (11.6-14.6); RBC Distribution Width SD 43.8 fl (35.1-43.9); Red Blood Count 3.62 M/mm3 (4.2-5.4); White Blood Count 8.2 K/mm3 (4.4-11.0)
--- NOTE | 2022-04-25 07:16 | CT_ITS ---
PROCEDURE: CT DIRECTED ABSCESS DRAINAGE, PERITONEAL DATE OF EXAMINATION: 04/25/2022. INDICATION: Female, 42 years old. Right upper quadrant abscess collection. PHYSICIAN: Edin Olson M.D. CONSENT: Written informed consent was obtained having explained the risks, benefits and alternatives in detail with the patient who accepted the risks and agreed to proceed. Laboratory review and clinical assessment was performed. CONSCIOUS SEDATION PROTOCOL: The Drugs used were: 2 mg Versed, IV., and 50 mcg Fentanyl, IV. The sedation time was: 15 minutes. Conscious sedation was started at 10:50 AM and terminated at 11:05 AM. The conscious sedation protocol was independently monitored. RADIATION DOSAGE (If Supplied By Facility): CTDIvol = ( 18 ) mGy, DLP = ( 375.64 ) mGycm. Individualized dose optimization techniques were utilized. TECHNIQUE: CT sections were made through the abdomen and pelvis revealing an abscess in the right upper quadrant. The skin surface was prepped and draped in a sterile fashion. Puncture of this collection was performed with a 8 [place] Drainage catheter. The drainage catheter was inserted into the collection and formed into position. Additional fluid was aspirated for a total of approximately 30 cc of cloudy purulent fluid. The catheter was sutured into position to allow for continued drainage. Followup CT sections reveals good position of the catheter CT/CT Guidance Abscess Drg w/Cath IMPRESSION: 1. CT directed drainage of a fluid collection using CT image guidance and image documentation as described. 2. Conscious Sedation protocol utilized with independent monitoring Electronically Signed: Edin Olson MD at 11:59 EST ,
[2022-04-25 07:30] LABS: AST(SGOT) 17 U/L (15-37); Alanine Aminotransfer ALT/SGPT 23 U/L (13-56); Albumin, Serum 2.3 g/dL (3.2-5.0); Alkaline Phosphatase 51 U/L (45-117); Bilirubin, Direct 0.12 mg/dL (0.00-0.30); Globulin 2.9 g/dL (2.2-4.2); Protein, Total 5.2 g/dL (6.4-8.2)
--- NOTE | 2022-04-25 08:46 | PN.SURG_ITS ---
Subjective Subjective Patient does not report any nausea or vomiting or ongoing bleeding Objective Data Objective Data Vital Signs: Vital Signs Temp Pulse Resp BP Pulse Ox O2 Del Method 97.6 F L 83 18 91/68 96 Room Air 04/25/22 03:20 04/25/22 07:00 04/25/22 03:20 04/25/22 03:20 04/25/22 03:20 04/25/22 03:20 Oxygen Delivery Method Room Air Weight: 138 lb 14.259 oz Body Mass Index (BMI) 24.5 Intake & Output: Intake and Output for Last 24 Hours 04/23/22 04/24/22 04/25/22 23:59 23:59 23:59 Intake Total 2917.5 / 2917.5 4181.67 / 4181.67 Balance 2917.5 / 2917.5 4181.67 / 4181.67 Lab / Micro Data Result Diagrams: 04/25/22 06:55 04/23/22 17:00 Labs: Laboratory Results - last 24 hr 04/23/22 22:22: Crossmatch See Detail 04/24/22 10:55: Hgb Cancelled, Hct Cancelled 04/24/22 10:55: WBC 14.1 H, RBC 3.91 L, Hgb 11.5 L, Hct 33.7 L, MCV 86.2 D, MCH 29.4, MCHC 34.1 D, RDW Std Deviation 43.5, RDW Coeff of Carlton 13.9, Plt Count 271, MPV 10.0, Immature Gran % (Auto) 0.600, Neut % (Auto) 61.7, Lymph % (Auto) 28.4, [place] % (Auto) 7.7, Eos % (Auto) 1.2, Baso % (Auto) 0.4, Absolute Neuts (auto) 8.7 H, Absolute Lymphs (auto) 4.00, Nucleated RBC % 0 04/24/22 16:25: PT 15.1 H, INR 1.2, APTT 23.6 L 04/25/22 06:55: WBC 8.2, RBC 3.62 L, Hgb 10.5 L, Hct 31.7 L, MCV 87.6, MCH 29.0, MCHC 33.1, RDW Std Deviation 43.8, RDW Coeff of [place] 13.8, Plt Count 235, MPV 10.0, Immature Gran % (Auto) 0.900, Neut % (Auto) 45.3 L, Lymph % (Auto) 43.6 H, [place] % (Auto) 6.3, Eos % (Auto) 3.5, Baso % (Auto) 0.4, Absolute Neuts (auto) 3.7, Absolute Lymphs (auto) 3.57, Nucleated RBC % 0 04/25/22 06:55: Total Bilirubin 0.30, Direct Bilirubin 0.12, AST 17, ALT 23, Alkaline Phosphatase 51, Total Protein 5.2 L, Albumin 2.3 L, Globulin 2.9 Micro: Microbiology 04/22/22 15:20 Urine, Clean Catch Urine Culture - Final Presumptive E. coli 04/22/22 13:25 Blood Culture (Wb) - Arm Left Blood Culture - Preliminary No growth in 48 hours. 04/22/22 12:41 Blood Culture (Wb) - Arm Left Blood Culture - Preliminary No growth in 48 hours. Radiography Diagnostic Testing: Radiology Impression Abdomen CT 04/24/22 07:55 IMPRESSION: 1. No intraperitoneal extravasation of oral Gastrografin contrast but abnormal duodenal bulb and descending duodenum are abnormally narrow. There is only minimal contrast irregular filling of Gastrografin contrast in the descending portion of the duodenum. This is presumably related to the extraluminal air-fluid collection behind the gallbladder. Whether this is from a perforated duodenal ulcer or not is difficult to confirm since there is no extravasation of oral Gastrografin. 2. No other additional findings or changes. Electronically Signed: Joey Styles MD at 10:46 EST , Rhythm Strip Rhythm Strip: Sinus Tach Rate: 115 Ectopy: None Physical Exam Const oriented x3 Resp normal respiratory effort GI soft to palpation Palpation: tender RUQ Assessment & Plan Assessment/Plan (1) Intraabdominal fluid collection: PLAN: I ordered a CT scan with oral contrast yesterday that did not show any contrast entering the fluid collection. I am still under the impression that this is likely a perforated duodenal ulcer with abscess. I will have interventional radiology place a percutaneous drain today and culture the fluid. I have asked GI to hold off on a scope for a day or 2 to allow for more healing of the ulcer before inflating the stomach with air. Kenji Garber MD Pager: [facility] [address] [place] [address] [address] [place] [address] Office:
[2022-04-25] MEDS: 0.9% Normal Saline 1,000 ML 100 ML IV (10:06)
[2022-04-25] MEDS: Midazolam 2 MG/2 ML Syringe IV (10:50)
[2022-04-25] MEDS: fentaNYL 100 MCG/2 ML Ampul IV (10:52)
[2022-04-25] MEDS: Lidocaine 2% (20 ml mdv) 20 ML Vial INFILT (10:58)
[2022-04-25] MEDS: ALPRAZolam 0.5 MG Tablet 2 MG PO ×2 (12:02→22:18)
[2022-04-25] MEDS: Ceftriaxone 1 GM/50 ML BAG IV (12:02)
[2022-04-25] MEDS: 0.9% Saline Lock 10 ML Syringe IV (12:05)
[2022-04-25] MEDS: Acetaminophen 325 MG Tablet 650 MG PO ×2 (12:59→22:20)
--- NOTE | 2022-04-25 17:09 | PN.HOSP_ITS ---
Subjective Subjective Seen and examined today, her white blood cell count now is normal, hemoglobin was 10.5 this morning. Patient had a percutaneous drain placed in her right upper quadrant, and drained approximately 30 cc of purulent fluid according to radiology, had multiple discussions with surgery as well as gastroenterology about her medical course, surgery feels that the patient should be n.p.o. and not undergo endoscopy until Monday of this week. Since she is not having obvious active bleeding, I agree with this course of care, I discussed this with gastroenterology, they do not object awaiting for endoscopy-there was a discussion whether it is really necessary to wait but there is not a clear answer concerning this. Objective Data Objective Data Vital Signs: Vital Signs Temp Pulse Resp BP Pulse Ox O2 Del Method 98.2 F 72 16 106/69 100 Room Air 04/25/22 12:08 04/25/22 12:08 04/25/22 12:08 04/25/22 12:08 04/25/22 12:08 04/25/22 12:08 Oxygen Delivery Method [4] Room Air Oxygen Delivery Method [3] Room Air Oxygen Delivery Method [2] Room Air Oxygen Delivery Method [1 ( Room Air Initial Baseline)] Oxygen Delivery Method Room Air Weight: 63 kg Body Mass Index (BMI) 24.5 Intake & Output: Intake and Output for Last 24 Hours 04/23/22 04/24/22 04/25/22 23:59 23:59 23:59 Intake Total 2917.5 / 2917.5 4181.67 / 4181.67 1211.92 / 1211.92 Balance 2917.5 / 2917.5 4181.67 / 4181.67 1211.92 / 1211.92 Lab / Micro Data Result Diagrams: 04/25/22 06:55 04/23/22 17:00 Labs: Laboratory Results - last 24 hr 04/25/22 06:55: WBC 8.2, RBC 3.62 L, Hgb 10.5 L, Hct 31.7 L, MCV 87.6, MCH 29.0, MCHC 33.1, RDW Std Deviation 43.8, RDW Coeff of Carlton 13.8, Plt Count 235, MPV 10.0, Immature Gran % (Auto) 0.900, Neut % (Auto) 45.3 L, Lymph % (Auto) 43.6 H, [place] % (Auto) 6.3, Eos % (Auto) 3.5, Baso % (Auto) 0.4, Absolute Neuts (auto) 3.7, Absolute Lymphs (auto) 3.57, Nucleated RBC % 0 04/25/22 06:55: Total Bilirubin 0.30, Direct Bilirubin 0.12, AST 17, ALT 23, Alkaline Phosphatase 51, Total Protein 5.2 L, Albumin 2.3 L, Globulin 2.9 Micro: Microbiology 04/22/22 15:20 Urine, Clean Catch Urine Culture - Final Presumptive E. coli 04/22/22 13:25 Blood Culture (Wb) - Arm Left Blood Culture - Preliminary No growth in 48 hours. 04/22/22 12:41 Blood Culture (Wb) - Arm Left Blood Culture - Preliminary No growth in 48 hours. Radiography Diagnostic Testing: Radiology Impression Abscess Drainage CT 04/25/22 07:16 IMPRESSION: 1. CT directed drainage of a fluid collection using CT image guidance and image documentation as described. 2. Conscious Sedation protocol utilized with independent monitoring Electronically Signed: Edin Olson MD at 11:59 EST Reading Location ID and State: [address] [place] [address] , Service support , Rhythm Strip Rhythm Strip: Sinus Tach Rate: 115 Ectopy: None Physical Exam Const alert, oriented x3, no apparent distress and healthy appearing General Appearance: cooperative, well kempt and well developed Orientation / Consciousness: awake, oriented to person, oriented to place and oriented to time HEENT normocephalic and moist oral mucous membranes Eyes PERRL, EOMs intact bilaterally and conjunctivae normal Neck supple, no JVD, thyroid normal and no carotid bruits General: trachea midline Resp normal respiratory effort and clear to auscultation bilaterally Auscultation: Negative for rales, rhonchi or wheezes Cardio regular rate, regular rhythm, no murmurs, no rub and no gallops GI normal to inspection, nondistended, normoactive bowel sounds, soft to palpation, non-tender and non-distended Extremity no clubbing, cyanosis or edema Skin no rashes or lesions noted General Skin Exam: no breakdown Neuro oriented x3, CN's II-XII intact bilaterally, no focal motor deficits and no sensory deficits noted Sensorium / Orientation: awake and alert Speech: speech normal Psych affect normal Assessment & Plan Assessment/Plan (1) Intraabdominal fluid collection: (2) UTI (urinary tract infection): PLAN: Plan 1. Acute pyelonephritis-from E. coli-this is resolving at this time, due to the purulent drainage from her percutaneous abdominal drain, I have decided to switch the patient's antibiotic coverage to Zosyn until we get culture results back from the fluid. I stopped her Rocephin IV #2 acute lower GI bleed versus upper GI bleed-etiology unclear, possibly secondary to bleed from a duodenal ulcer or pathology in the colon-patient will have an EGD on Monday #3 chronic opiate abuse-patient is currently in a program at [facility], she is on Suboxone while in the hospital, she states she was not given Suboxone at [facility] however. #4 panic disorder-patient is on Xanax chronically for this, it will be continued while she is in the hospital #5 lactic acidosis-etiology unclear at this point, I do not believe the patient has documented criteria for sepsis, fluids will be administered #6 fluid collection in the right upper quadrant-possibly secondary to perforation of duodenum from duodenal ulcer, again percutaneous drain was placed in the area with collection of approximately 30 cc of purulent material, this will be sent for culture, patient will remain n.p.o. at this time, I have increased the patient's IV fluids. #7 acute blood loss anemia requiring blood transfusion-patient's hemoglobin today was 10.5 Total clinical time spent by myself addressing the patient's medical problems, reviewing all the medical data, and collaborating with patient's care team: 50 minutes Charges/Coding Visit Charges Inpatient E&M: 81524 Init Hosp L3
--- NOTE | 2022-04-25 17:15 | PN_ITS ---
Subjective Subjective Patient underwent percutaneous drainage of abscess today. She states that she is hungry. Objective Data Objective Data Vital Signs: Vital Signs Temp Pulse Resp BP Pulse Ox O2 Del Method 98.2 F 72 16 106/69 100 Room Air 04/25/22 12:08 04/25/22 12:08 04/25/22 12:08 04/25/22 12:08 04/25/22 12:08 04/25/22 12:08 Oxygen Delivery Method [4] Room Air Oxygen Delivery Method [3] Room Air Oxygen Delivery Method [2] Room Air Oxygen Delivery Method [1 ( Room Air Initial Baseline)] Oxygen Delivery Method Room Air Weight: 138 lb 14.259 oz Body Mass Index (BMI) 24.5 Intake & Output: Intake and Output for Last 24 Hours 04/23/22 04/24/22 04/25/22 23:59 23:59 23:59 Intake Total 2917.5 / 2917.5 4181.67 / 4181.67 1211.92 / 1211.92 Balance 2917.5 / 2917.5 4181.67 / 4181.67 1211.92 / 1211.92 Lab / Micro Data Result Diagrams: 04/25/22 06:55 04/23/22 17:00 Labs: Laboratory Results - last 24 hr 04/25/22 06:55: WBC 8.2, RBC 3.62 L, Hgb 10.5 L, Hct 31.7 L, MCV 87.6, MCH 29.0, MCHC 33.1, RDW Std Deviation 43.8, RDW Coeff of Carlton 13.8, Plt Count 235, MPV 10.0, Immature Gran % (Auto) 0.900, Neut % (Auto) 45.3 L, Lymph % (Auto) 43.6 H, [place] % (Auto) 6.3, Eos % (Auto) 3.5, Baso % (Auto) 0.4, Absolute Neuts (auto) 3.7, Absolute Lymphs (auto) 3.57, Nucleated RBC % 0 04/25/22 06:55: Total Bilirubin 0.30, Direct Bilirubin 0.12, AST 17, ALT 23, Alkaline Phosphatase 51, Total Protein 5.2 L, Albumin 2.3 L, Globulin 2.9 Micro: Microbiology 04/22/22 15:20 Urine, Clean Catch Urine Culture - Final Presumptive E. coli 04/22/22 13:25 Blood Culture (Wb) - Arm Left Blood Culture - Preliminary No growth in 48 hours. 04/22/22 12:41 Blood Culture (Wb) - Arm Left Blood Culture - Preliminary No growth in 48 hours. Radiography Diagnostic Testing: Radiology Impression Abscess Drainage CT 04/25/22 07:16 IMPRESSION: 1. CT directed drainage of a fluid collection using CT image guidance and image documentation as described. 2. Conscious Sedation protocol utilized with independent monitoring Electronically Signed: Edin Olson MD at 11:59 EST , Rhythm Strip Rhythm Strip: Sinus Tach Rate: 115 Ectopy: None Physical Exam Const alert, oriented x3, no apparent distress and healthy appearing General Appearance: cooperative, well kempt and well developed Orientation / Consciousness: awake, oriented to person, oriented to place and oriented to time HEENT normocephalic and moist oral mucous membranes Eyes PERRL, EOMs intact bilaterally and conjunctivae normal Neck supple, no JVD, thyroid normal and no carotid bruits General: trachea midline Resp normal respiratory effort and clear to auscultation bilaterally Auscultation: Negative for rales, rhonchi or wheezes Cardio regular rate, regular rhythm, no murmurs, no rub and no gallops GI normal to inspection, nondistended, normoactive bowel sounds, soft to palpation, non-tender and non-distended Extremity no clubbing, cyanosis or edema Skin no rashes or lesions noted General Skin Exam: no breakdown Neuro oriented x3, CN's II-XII intact bilaterally, no focal motor deficits and no sensory deficits noted Sensorium / Orientation: awake and alert Speech: speech normal Psych affect normal Assessment & Plan Assessment/Plan (1) Intraabdominal fluid collection: PLAN: CT scan with oral contrast yesterday that did not show any contrast entering the fluid collection. The working diagnosis is a perforated duodenal ulcer without abscess at this time. I talked with surgical attending and we will hold off on endoscopy until April 27. (2) GI bleed: PLAN: The working diagnosis is a duodenal ulcer that caused an acute GI bleed. The plan is for endoscopy on April 27. Continue PPI therapy and we will add misoprostol or sulcrafate therapy. Charges/Coding Visit Charges Inpatient E&M: 85227 Subs Hosp L2
[2022-04-25] MEDS: Methocarbamol 750 MG Tablet PO (22:12)
[2022-04-25] MEDS: 0.9% Normal Saline 1,000 ML 125 ML IV (22:33)
[2022-04-26] MEDS: Sucralfate 1 GM Tablet PO ×3 (05:25→16:40)
[2022-04-26] MEDS: Methocarbamol 750 MG Tablet PO ×3 (05:25→21:28)
[2022-04-26 05:30] VITALS: BP 124/79; PULSE 106; RESP 16; TEMP 36.8; O2SAT 97
[2022-04-26 07:17] LABS: Absolute Lymphocyte Count 2.54 X10^3/uL (0.83-4.51); Absolute Neutrophil Count 4.6 X10^3/uL (2.0-7.7); Basophil# 0.02 X10^3/uL; Basophil% 0.3 % (0-1); Eosinophil# 0.26 X10^3/uL; Eosinophils% 3.3 % (0-5); Hematocrit 32.2 % (37-47); Hemoglobin 10.8 g/dL (12.0-15.0); Lymphocyte # 2.54 X10^3/ul (0.83-4.51); Lymphocyte % 31.8 % (19-41); Mean Corp Hgb Conc 33.5 g/dL (32-36); Mean Corpuscular Hgb 29.6 pg (27.0-32.0); Mean Corpuscular Volume 88.2 fL (81-99); Mean Platelet Vol. 9.2 fl (6.2-12.0); Monocyte% 6.3 % (0-10); NRBC Flagged by Analyzer 0 % (0-5); Neutrophil # 4.63 X10^3/uL (2.7-7.7); Neutrophil % 57.7 % (47-70); Platelet Count 264 K/mm3 (150-450); RBC Distribution Width CV 13.5 % (11.6-14.6); RBC Distribution Width SD 43.2 fl (35.1-43.9); Red Blood Count 3.65 M/mm3 (4.2-5.4)
--- NOTE | 2022-04-26 07:19 | PCM.PN.SRG ---
Subjective Subjective Patient does not complain of any abdominal pain except for the drain entry site Objective Data Objective Data Vital Signs: Vital Signs Temp Pulse Resp BP Pulse Ox O2 Del Method 98.3 F 106 H 16 124/79 H 97 Room Air 04/26/22 05:30 04/26/22 05:30 04/26/22 05:30 04/26/22 05:30 04/26/22 05:30 04/26/22 05:30 Oxygen Delivery Method [4] Room Air Oxygen Delivery Method [3] Room Air Oxygen Delivery Method [2] Room Air Oxygen Delivery Method [1 ( Room Air Initial Baseline)] Oxygen Delivery Method Room Air Weight: 138 lb 14.259 oz Body Mass Index (BMI) 24.5 Intake & Output: Intake and Output for Last 24 Hours 04/24/22 04/25/22 04/26/22 23:59 23:59 23:59 Intake Total 4181.67 / 4181.67 2175.25 / 2175.25 160 / 160 Output Total 300 / 310 15 / 15 Balance 4181.67 / 4181.67 1875.25 / 1865.25 145 / 145 Lab / Micro Data Result Diagrams: 04/26/22 07:10 04/23/22 17:00 Labs: Laboratory Results - last 24 hr 04/25/22 06:55: Total Bilirubin 0.30, Direct Bilirubin 0.12, AST 17, ALT 23, Alkaline Phosphatase 51, Total Protein 5.2 L, Albumin 2.3 L, Globulin 2.9 04/26/22 07:10: WBC 8.0, RBC 3.65 L, Hgb 10.8 L, Hct 32.2 L, MCV 88.2, MCH 29.6, MCHC 33.5, RDW Std Deviation 43.2, RDW Coeff of Carlton 13.5, Plt Count 264, MPV 9.2, Immature Gran % (Auto) 0.600, Neut % (Auto) 57.7, Lymph % (Auto) 31.8, [place] % (Auto) 6.3, Eos % (Auto) 3.3, Baso % (Auto) 0.3, Absolute Neuts (auto) 4.6, Absolute Lymphs (auto) 2.54, Nucleated RBC % 0 Micro: Microbiology 04/22/22 15:20 Urine, Clean Catch Urine Culture - Final Presumptive E. coli 04/22/22 13:25 Blood Culture (Wb) - Arm Left Blood Culture - Preliminary No growth in 48 hours. 04/22/22 12:41 Blood Culture (Wb) - Arm Left Blood Culture - Preliminary No growth in 48 hours. Radiography Diagnostic Testing: Radiology Impression Abscess Drainage CT 04/25/22 07:16 IMPRESSION: 1. CT directed drainage of a fluid collection using CT image guidance and image documentation as described. 2. Conscious Sedation protocol utilized with independent monitoring Electronically Signed: Edin Olson MD at 11:59 EST , Rhythm Strip Rhythm Strip: Sinus Tach Rate: 115 Ectopy: None Physical Exam Const oriented x3 Resp normal respiratory effort Assessment & Plan Assessment/Plan (1) Intraabdominal fluid collection: PLAN: Patient had drain placed yesterday with purulent output. Culture pending. Continue antibiotics. I will allow the patient to clear liquids but I do not want her diet advance beyond this. Plan for EGD with Dr. Quigley tomorrow. Continue PPI. Kenji Garber MD Pager: [facility] [address] [place] [address], [address] [place] [address] Office:
[2022-04-26 09:24] VITALS: BP 104/68; PULSE 86; RESP 14; TEMP 36.5; O2SAT 100
[2022-04-26] MEDS: 0.9% Normal Saline 1,000 ML 125 ML IV ×2 (09:31→17:35)
[2022-04-26] MEDS: ALPRAZolam 0.5 MG Tablet 2 MG PO ×2 (09:36→21:28)
[2022-04-26 09:47] VITALS: BP 104/68; PULSE 86; RESP 14; TEMP 36.5; O2SAT 100
[2022-04-26] MEDS: Acetaminophen 325 MG Tablet 650 MG PO (12:49)
--- NOTE | 2022-04-26 16:29 | PN.HOSP_ITS ---
Subjective Subjective Patient was seen and examined today, she is still having some drainage from her right upper quadrant drainage catheter. Patient's white count remains normal today, hemoglobin was 10.8. Objective Data Objective Data Vital Signs: Vital Signs Temp Pulse Resp BP Pulse Ox O2 Del Method 97.7 F L 86 14 104/68 100 Room Air 04/26/22 09:47 04/26/22 09:47 04/26/22 09:47 04/26/22 09:47 04/26/22 09:47 04/26/22 09:47 Oxygen Delivery Method [4] Room Air Oxygen Delivery Method [3] Room Air Oxygen Delivery Method [2] Room Air Oxygen Delivery Method [1 ( Room Air Initial Baseline)] Oxygen Delivery Method Room Air Weight: 63 kg Body Mass Index (BMI) 24.5 Intake & Output: Intake and Output for Last 24 Hours 04/24/22 04/25/22 04/26/22 23:59 23:59 23:59 Intake Total 4181.67 / 4181.67 2175.25 / 2175.25 1740 / 1740 Output Total 300 / 310 15 / 15 Balance 4181.67 / 4181.67 1875.25 / 1865.25 1725 / 1725 Lab / Micro Data Result Diagrams: 04/26/22 07:10 04/23/22 17:00 Labs: Laboratory Results - last 24 hr 04/26/22 07:10: WBC 8.0, RBC 3.65 L, Hgb 10.8 L, Hct 32.2 L, MCV 88.2, MCH 29.6, MCHC 33.5, RDW Std Deviation 43.2, RDW Coeff of Carl[place] 13.5, Plt Count 264, MPV 9.2, Immature Gran % (Auto) 0.600, Neut % (Auto) 57.7, Lymph % (Auto) 31.8, [place] % (Auto) 6.3, Eos % (Auto) 3.3, Baso % (Auto) 0.3, Absolute Neuts (auto) 4.6, Absolute Lymphs (auto) 2.54, Nucleated RBC % 0 Micro: Microbiology 04/22/22 15:20 Urine, Clean Catch Urine Culture - Final Presumptive E. coli 04/22/22 13:25 Blood Culture (Wb) - Arm Left Blood Culture - Preliminary No growth in 48 hours. 04/22/22 12:41 Blood Culture (Wb) - Arm Left Blood Culture - Preliminary No growth in 48 hours. Rhythm Strip Rhythm Strip: Sinus Tach Rate: 115 Ectopy: None Physical Exam Narrative alert, oriented x3, no apparent distress and healthy appearing General Appearance: cooperative, well kempt and well developed Orientation / Consciousness: awake, oriented to person, oriented to place and oriented to time HEENT normocephalic and moist oral mucous membranes Eyes PERRL, EOMs intact bilaterally and conjunctivae normal Neck supple, no JVD, thyroid normal and no carotid bruits General: trachea midline Resp normal respiratory effort and clear to auscultation bilaterally Auscultation: Negative for rales, rhonchi or wheezes Cardio regular rate, regular rhythm, no murmurs, no rub and no gallops GI normal to inspection, nondistended, normoactive bowel sounds, soft to palpation, non-tender and non-distended, right upper quadrant percutaneous drainage tube is present Extremity no clubbing, cyanosis or edema Skin no rashes or lesions noted General Skin Exam: no breakdown Neuro oriented x3, CN's II-XII intact bilaterally, no focal motor deficits and no sensory deficits noted Sensorium / Orientation: awake and alert Speech: speech normal Psych affect normal Const alert, oriented x3, no apparent distress, average body habitus and healthy appearing Constitutional Narrative: anxious General Appearance: cooperative, well kempt and well developed Orientation / Consciousness: awake, oriented to person, oriented to place and oriented to time HEENT normocephalic, head/scalp atraumatic, hearing grossly normal bilaterally and moist oral mucous membranes Eyes PERRL, EOMs intact bilaterally and conjunctivae normal Neck no lymphadenopathy, supple, no JVD, thyroid normal and no carotid bruits General: trachea midline Resp normal respiratory effort, no retractions, no use of accessory muscles and clear to auscultation bilaterally Auscultation: Negative for rales, rhonchi or wheezes Cardio regular rate, regular rhythm, S1 normal heart sound, S2 normal heart sound, no murmurs, no rub and no gallops GI normal to inspection, nondistended, normoactive bowel sounds, soft to palpation, non-tender and non-distended Extremity normal to inspection, full ROM and no clubbing, cyanosis or edema Skin no rashes or lesions noted Skin Narrative: no evidence of abscess or erythema at injection sites on her thighs General Skin Exam: no breakdown Neuro oriented x3, CN's II-XII intact bilaterally, moves all extremities, no focal motor deficits and no sensory deficits noted Sensorium / Orientation: awake, alert, oriented to person, oriented to place and oriented to time Speech: speech normal Motor Exam: strength 5/5 throughout Psych affect normal Psych Narrative: anxious Assessment & Plan Assessment/Plan (1) UTI (urinary tract infection): (2) Intraabdominal fluid collection: PLAN: Plan 1. Acute pyelonephritis-from E. coli-this is resolving at this time, due to the purulent drainage from her percutaneous abdominal drain, I have decided to switch the patient's antibiotic coverage to Zosyn until we get culture results back from the fluid. #2 acute lower GI bleed versus upper GI bleed-etiology unclear, possibly secondary to bleed from a duodenal ulcer or pathology in the colon-patient will have an EGD on Monday #3 chronic opiate abuse-patient is currently in a program at [facility], patient is not currently on Suboxone #4 panic disorder-patient is on Xanax chronically for this, it will be continued while she is in the hospital #5 lactic acidosis-etiology unclear at this point, I do not believe the patient has documented criteria for sepsis, fluids will be administered #6 fluid collection in the right upper quadrant-possibly secondary to perforation of duodenum from duodenal ulcer, I talked to micro today about culturing the fluid, they are looking into it, I cannot verify it was cultured at this time. #7 acute blood loss anemia requiring blood transfusion-patient's hemoglobin today was 10.8 Total clinical time spent by myself addressing the patient's medical problems, reviewing all the medical data, and collaborating with patient's care team: 36 minutes Charges/Coding Visit Charges Inpatient E&M: 72748 Subs Hosp L2
[2022-04-26 16:38] VITALS: BP 97/61; PULSE 76; RESP 15; TEMP 36.7; O2SAT 100
[2022-04-26 18:22] LABS: Body Fluid Mononuclear WBC % 23.3 %; Body Fluid Polynuclear WBC % 76.7 %
[2022-04-26 19:36] LABS: Auto B Fluid Analyzer BKGD Ct COUNTS W/IN LIMITS (W/IN LIMITS); Neutrophil (Segs) 100 %; Source- Body Fluid PERITONEAL FLUID
[2022-04-26 19:37] LABS: Appearance/Body Fluid TURBID; Body Fluid QC Type(s) BF1Q
[2022-04-26 21:20] VITALS: BP 102/73; PULSE 80; RESP 18; TEMP 36.7; O2SAT 99
[2022-04-27] VITALS (14 sets, daily range): BP systolic 93–120; BP diastolic 65–83; PULSE 69–97; RESP 14–17; TEMP 36.1–37.1; O2SAT 97–100; BMI 24.5
--- NOTE | 2022-04-27 | GASB_PTH ---
PATIENT: SIMON DUORN LOC: [facility] U#:[id number] AGE/SX: 42/F ROOM: [facility] RE04/22/[address]: Dr. Raheel Mcelroy DO : 1980 BED: 1 DIS: 04/28/2022 SPEC #: [id number] RECD: 04/27/22 15:03 STATUS: EMIGDIO MILLER #: [id number] FELICIA: 04/27/22 00:[address]: Jw Quigley DEPT: SURGICAL PATHOLOGY RECD BY: Sivakumar Ness ENTERED: 04/28/22 11:01 SP TYPE: Gastric Bx OTHR DR: MD Dr. Raheel Doyle DO Dr. Nana Yaa Koram, MD Tissues: A - Duodenum, NOS B - Esophageal mucous membrane C - Gastric mucous membrane Procedures: Special Stain Group II Surgery Specimen Level IV Alcian Blue/PAS (control) Comments: @ Ordering doctor for SUIV edited from to @ by REZA at 04/28/22 142 @ Submitting doctor edited from to @ by RGOOD at 04/28/221421 HEADER OPERATION: EGD ([facility] [place]) with biopsies PRE-OP DIAGNOSIS: Intra-abdominal fluid collection, GI bleed TISSUE SUBMITTED: A ? Duodenal ulcer biopsy, B ? Distal esophagus biopsy, C ? Gastric body biopsy MICROSCOPIC DIAGNOSIS A. Duodenal ulcer, biopsy: No pathologic change. B. Distal esophagus, biopsy: Gastroesophageal junctional mucosa with mild chronic inflammation. No evidence of goblet cell metaplasia. See comment. C. Gastric body, biopsy: Mild chronic gastritis. See comment. AM:sapna 04/29/2022 COMMENT B. Alcian blue/PAS stain with matched control supports the above diagnosis. C. The results of immunohistochemistry for Helicobacter pylori will be reported separately ([id number]). MICROSCOPIC DESCRIPTION Slides are reviewed. GROSS DESCRIPTION A - Received in fixative is one container labeled with the patient's name and designated duodenal ulcer biopsy. The specimen consists of multiple irregular fragments of light cartwright soft tissue that in aggregate measure 1 x 0.3 x 0.1 cm. The specimen is totally submitted in one cassette. B - Received in fixative is one container labeled with the patient's name and designated distal esophagus biopsy. The specimen consists of two irregular fragments of light cartwright soft tissue that in aggregate measure 0.6 x 0.3 x 0.1 cm. The specimen is totally submitted in one cassette. C - Received in fixative is one container labeled with the patient's name and designated gastric body biopsy. The specimen consists of multiple irregular fragments of light cartwright soft tissue that in aggregate measure 0.6 x 0.5 x 0.1 cm. The specimen is totally submitted in one cassette. / SJ:rg 04/28/2022 TC:3 CPT: 76046 x3, 26471
[2022-04-27] MEDS: 0.9% Normal Saline 1,000 ML 125 ML IV ×4 (00:42→22:07)
--- NOTE | 2022-04-27 05:55 | EKG12_ITS ---
Test Reason : PRE OP Blood Pressure : / mmHG Vent. Rate : 077 BPM Atrial Rate : 077 BPM P-R Int : 126 ms QRS Dur : 068 ms QT Int : 390 ms P-R-T Axes : 067 065 061 degrees QTc Int : 441 ms Normal sinus rhythm Normal ECG When compared with ECG of 25-APR-2022 05:37, MANUAL COMPARISON REQUIRED, DATA IS UNCONFIRMED Confirmed by MARK ANTHONY GONZALEZ, JOSÉ MIGUEL ([id number]), story editor ANALISA WHITMORE ([id number]) on 04/29/2022 9:05:02 AM Referred By: Confirmed By:CARLNEE HOPSON MD
[2022-04-27 08:40] LABS: Absolute Neutrophil Count 4.1 X10^3/uL (2.0-7.7); Basophil# 0.04 X10^3/uL; Basophil% 0.6 % (0-1); Eosinophil# 0.22 X10^3/uL; Eosinophils% 3.3 % (0-5); Hematocrit 38.1 % (37-47); Hemoglobin 12.6 g/dL (12.0-15.0); Lymphocyte % 28.6 % (19-41); Mean Corp Hgb Conc 33.1 g/dL (32-36); Mean Corpuscular Hgb 29.2 pg (27.0-32.0); Mean Corpuscular Volume 88.4 fL (81-99); Mean Platelet Vol. 10.5 fl (6.2-12.0); Monocyte# 0.36 X10^3/uL; Monocyte% 5.4 % (0-10); NRBC Flagged by Analyzer 0 % (0-5); Neutrophil # 4.07 X10^3/uL (2.7-7.7); Neutrophil % 61.3 % (47-70); Platelet Count 207 K/mm3 (150-450); RBC Distribution Width CV 13.2 % (11.6-14.6); RBC Distribution Width SD 42.5 fl (35.1-43.9); Red Blood Count 4.31 M/mm3 (4.2-5.4); White Blood Count 6.6 K/mm3 (4.4-11.0)
[2022-04-27 09:21] LABS: AST(SGOT) 25 U/L (15-37); Alanine Aminotransfer ALT/SGPT 34 U/L (13-56); Albumin, Serum 2.8 g/dL (3.2-5.0); Alkaline Phosphatase 61 U/L (45-117); Globulin 3.6 g/dL (2.2-4.2); Protein, Total 6.4 g/dL (6.4-8.2)
[2022-04-27] MEDS: Lactated Ringers 1,000 ML 15 ML IV (11:59)
--- NOTE | 2022-04-27 12:15 | IMM_PTH ---
PATIENT: SIMON DURON LOC: [facility] U#:[id number] AGE/SX: 42/F ROOM: [facility] RE04/22/[address]: Dr. Raheel Mcelroy DO : 1980 BED: 1 DIS: 04/28/2022 SPEC #: [id number] RECD: 04/28/22 14:21 STATUS: EMIGDIO REQ #: [id number] FELICIA: 04/27/22 12:[address]: Jw Quigley DEPT: IMMUNOHISTOCHEMISTRY RECD BY: Mickie Villafuerte ENTERED: 04/28/22 14:22 SP TYPE: IMMUNO OTHR DR: MD Dr. Raheel Doyle DO Dr. Nana Yaa Koram, MD Tissues: C - Stomach, NOS Procedures: H Pylori (initial) PHYSICIAN & INSTITUTION [place] [id number] SPECIMEN INFORMATION: Tissue Source: C ? Gastric body biopsy Clinical Info: Intra-abdominal fluid collection; GI bleed Specimen Number: [id number] CPT code: 39788 METHODOLOGY: Deparaffinized sections of prefer/formalin-fixed tissue or PAP/DQ stained slides are incubated with monoclonal/polyclonal antibodies/oligonucleotide probes. Localization is made via biotin free immunoperoxidase method. Appropriate controls are performed and reacted as expected. Results on target cell population are indicated in the following table: RESULTS: ANTIBODY / CLONE RESULT Block C H Pylori (polyclonal) negative These tests were developed and their performance characteristics determined by [facility]. They may not have been cleared or approved by the [place]. Food and Drug Administration. The FDA has determined that such clearance or approval is not necessary. The above immunohistochemical/dualISH markers are ordered and reviewed by the Pathologist. INTERPRETATION: C. Gastric body, biopsy: Negative for Helicobacter pylori organisms. AM:sapna 05/02/2022
[2022-04-27 12:35] LABS: Pathologist Comment/Body Fluid Reviewed
--- NOTE | 2022-04-27 12:35 | OP.CCLET_ITS ---
04/27/2022 Lady Rodriguez Re : Upper GI endoscopy procedure for Leila Mattson Dear Jennifer This procedure was performed on Wednesday, April 27, 2022. My impressions and recommendations are as follows: Impressions : - LA Grade A erosive esophagitis. Biopsied. - Small hiatal hernia. - Erythematous mucosa in the stomach. Biopsied. - One non-bleeding duodenal ulcer with no stigmata of bleeding. Biopsied. Recommendations : - [facility]. - Full liquid diet. - Continue present medications. - Await pathology results. - Repeat upper endoscopy in 3 months for surveillance. - Use Protonix (pantoprazole) 40 mg PO BID for 12 weeks. - Use sucralfate tablets 1 gram PO QID for 12 weeks. My findings are described in the full procedure note, which is enclosed. If I can be of further assistance, please feel free to contact me at . Sincerely, Jw Quigley, 04/27/2022 12:35:17 PM This report has been signed electronically.
--- NOTE | 2022-04-27 12:35 | OP.EGD_ITS ---
Patient Name: Leila Mattson Procedure Date: 04/27/2022 12:08 PM Date of : 1980 Age: 42 Procedure: Upper GI endoscopy Indications: Epigastric abdominal pain Providers: Jw Quigley DO Medicines: Monitored Anesthesia Care Patient Profile: This is a 42 year old female. Refer to note in patient chart for documentation of history and physical. Patient has symptoms of acute epigastric abdominal pain. Complications: No immediate complications. Procedure: Pre-Anesthesia Assessment: - Prior to the procedure, a History and Physical was performed, and patient medications and allergies were reviewed. The risks and benefits of the procedure and the sedation options and risks were discussed with the patient. All questions were answered and informed consent was obtained. Patient identification and proposed procedure were verified by the physician in the pre-procedure area. Mental Status Examination: alert and oriented. Airway Examination: normal oropharyngeal airway and neck mobility. Respiratory Examination: clear to auscultation. CV Examination: normal. Prophylactic Antibiotics: The patient does not require prophylactic antibiotics. Prior Anticoagulants: The patient has taken no previous anticoagulant or antiplatelet agents. ASA Grade Assessment: II - A patient with mild systemic disease. After reviewing the risks and benefits, the patient was deemed in satisfactory condition to undergo the procedure. The anesthesia plan was to use monitored anesthesia care (MAC). Immediately prior to administration of medications, the patient was re-assessed for adequacy to receive sedatives. The heart rate, respiratory rate, oxygen saturations, blood pressure, adequacy of pulmonary ventilation, and response to care were monitored throughout the procedure. The physical status of the patient was re-assessed after the procedure. After obtaining informed consent, the endoscope was passed under direct vision. Throughout the procedure, the patient's blood pressure, pulse, and oxygen saturations were monitored continuously. The gastroscope was introduced through the mouth, and advanced to the second part of duodenum. The upper GI endoscopy was accomplished without difficulty. The patient tolerated the procedure well. Scope In: 12:18:57 PM Scope Out: 12:22:33 PM Total Procedure Duration Time 0 hours 3 minutes 36 seconds Findings: LA Grade A (one or more mucosal breaks less than 5 mm, not extending between tops of 2 mucosal folds) esophagitis with no bleeding was found 35 to 37 cm from the incisors. Biopsies were taken with a cold forceps for histology. Verification of patient identification for the specimen was done. Estimated blood loss was minimal. A small hiatal hernia was present. Patchy mildly erythematous mucosa without bleeding was found in the stomach. Biopsies were taken with a cold forceps for histology. Verification of patient identification for the specimen was done. Estimated blood loss was minimal. One non-bleeding cratered duodenal ulcer with no stigmata of bleeding was found in the first portion of the duodenum. The lesion was 8 mm in largest dimension. Biopsies were taken with a cold forceps for histology. Verification of patient identification for the specimen was done. Estimated blood loss was minimal. Impression: - LA Grade A erosive esophagitis. Biopsied. - Small hiatal hernia. - Erythematous mucosa in the stomach. Biopsied. - One non-bleeding duodenal ulcer with no stigmata of bleeding. Biopsied. Recommendation: - [facility] to [facility] care. - Full liquid diet. - Continue present medications. - Await pathology results. - Repeat upper endoscopy in 3 months for surveillance. - Use Protonix (pantoprazole) 40 mg PO BID for 12 weeks. - Use sucralfate tablets 1 gram PO QID for 12 weeks. Procedure Code(s): --- Professional --- 82364, Esophagogastroduodenoscopy, flexible, transoral; with biopsy, single or multiple CPT copyright 2017 [employer]. All rights reserved. The codes documented in this report are preliminary and upon area counselor review may be revised to meet current compliance requirements. Jw Quigley DO 04/27/2022 12:35:17 PM This report has been signed electronically. Number of Addenda: 0 Note Initiated On: 04/27/2022 12:08 PM
--- NOTE | 2022-04-27 13:05 | NURSING ---
Called patient's mom and gave update on patient and how procedure went. Mother stated she would call patient later on in the day to check in.
[2022-04-27] MEDS: Sucralfate 1 GM Tablet PO ×2 (14:25→16:14)
[2022-04-27] MEDS: Methocarbamol 750 MG Tablet PO ×2 (14:25→22:07)
[2022-04-27] MEDS: ALPRAZolam 0.5 MG Tablet 2 MG PO ×2 (14:27→22:13)
--- NOTE | 2022-04-27 14:52 | PN.HOSP_ITS ---
Subjective Subjective Patient was seen and examined today, she had an EGD which showed an ulcer a few millimeters in diameter in the duodenum. There was no bleeding noted, gastroenterology feels this was probably the source of the patient's GI bleeding. I also talked with general surgery who stated that the patient could eat a regular diet and that her drain probably would be pulled tomorrow. I have switched patient's antibiotic from IV Zosyn to oral Augmentin. Objective Data Objective Data Vital Signs: Vital Signs Temp Pulse Resp BP Pulse Ox O2 Del Method 97.7 F L 70 17 120/81 H 100 Room Air 04/27/22 13:22 04/27/22 13:22 04/27/22 13:22 04/27/22 13:04/27/22 13:04/27/22 14:30 Oxygen Delivery Method [4] Room Air Oxygen Delivery Method [3] Room Air Oxygen Delivery Method [2] Room Air Oxygen Delivery Method [1 ( Room Air Initial Baseline)] Oxygen Delivery Method Room Air Weight: 63 kg Body Mass Index (BMI) 24.5 Intake & Output: Intake and Output for Last 24 Hours 04/25/22 04/26/22 04/27/22 23:59 23:59 23:59 Intake Total 2175.25 / 2175.25 3620 / 3620 2405.83 / 2405.83 Output Total 300 / 310 / Balance 1875.25 / 1865.25 3605 / 3605 2385.83 / 2385.83 Lab / Micro Data Result Diagrams: 04/27/22 08:13 04/23/22 17:00 Labs: Laboratory Results - last 24 hr 04/25/22 : Fluid Source PERITONEAL FLUID, Fluid Color , Fluid Appearance TURBID, Fluid WBC 139.800, Fluid RBC 0.240, Fluid Tot Cell Count 141.640 H, Fld Polynuclear WBCs # 107.280, Fld Polynuclear WBCs % 76.7, Fluid Mononuclear WBCs 32.520, Fld Mononuclear WBCs % 23.3, Fluid Neutrophils 100, Fl Pathologist Comment Reviewed, Fluid Comment 2 SEE COMMENT 04/27/22 08:13: WBC 6.6, RBC 4.31, Hgb 12.6, Hct 38.1, MCV 88.4, MCH 29.2, MCHC 33.1, RDW Std Deviation 42.5, RDW Coeff of [place] 13.2, Plt Count 207, MPV 10.5, Immature Gran % (Auto) 0.800, Neut % (Auto) 61.3, Lymph % (Auto) 28.6, [place] % (Auto) 5.4, Eos % (Auto) 3.3, Baso % (Auto) 0.6, Absolute Neuts (auto) 4.1, Absolute Lymphs (auto) 1.90, Nucleated RBC % 0 04/27/22 08:13: Total Bilirubin 0.20, Direct Bilirubin 0.10, AST 25, ALT 34, Alkaline Phosphatase 61, Total Protein 6.4, Albumin 2.8 L, Globulin 3.6 Micro: Microbiology 04/25/22 Unknown Fluid - Peritoneal Gram Stain - Final 04/25/22 Unknown Fluid - Peritoneal Body Fluid Culture - Preliminary No growth-Final to follow 04/22/22 15:20 Urine, Clean Catch Urine Culture - Final Presumptive E. coli 04/22/22 13:25 Blood Culture (Wb) - Arm Left Blood Culture - Preliminary No growth in 48 hours. 04/22/22 12:41 Blood Culture (Wb) - Arm Left Blood Culture - Preliminary No growth in 48 hours. Rhythm Strip Rhythm Strip: Sinus Tach Rate: 115 Ectopy: None Physical Exam Const alert, oriented x3, no apparent distress and healthy appearing General Appearance: cooperative, well kempt and well developed Orientation / Consciousness: awake, oriented to person, oriented to place and oriented to time HEENT normocephalic and moist oral mucous membranes Eyes PERRL, EOMs intact bilaterally and conjunctivae normal Neck supple, no JVD, thyroid normal and no carotid bruits General: trachea midline Resp normal respiratory effort, no retractions, no use of accessory muscles and clear to auscultation bilaterally Auscultation: Negative for rales, rhonchi or wheezes Cardio regular rate, regular rhythm, S1 normal heart sound, S2 normal heart sound, no murmurs, no rub and no gallops GI normal to inspection, nondistended, normoactive bowel sounds, soft to palpation, non-tender and non-distended GI Narrative: There is a percutaneous drain present over the right upper abdomen Extremity no clubbing, cyanosis or edema Skin no rashes or lesions noted General Skin Exam: no breakdown Neuro oriented x3, CN's II-XII intact bilaterally, no focal motor deficits and no sensory deficits noted Sensorium / Orientation: awake and alert Speech: speech normal Psych affect normal Assessment & Plan Assessment/Plan (1) Intraabdominal fluid collection: (2) UTI (urinary tract infection): PLAN: Plan 1. Acute pyelonephritis-from E. coli-this is resolving at this time, I have changed the patient to oral Augmentin #2 upper GI bleed-resolved at this time-secondary to a duodenal ulcer, patient is to remain on PPI, I will change it to oral from IV #3 chronic opiate abuse-patient is currently in a program at 180, patient is not currently on Suboxone #4 panic disorder-patient is on Xanax chronically for this, it will be continued while she is in the hospital #5 lactic acidosis-etiology unclear at this point, I do not believe the patient has documented criteria for sepsis, fluids will be administered #6 Right upper quadrant abdominal abscess with drain in place, secondary to perforated duodenal ulcer-patient's antibiotic will be changed to Augmentin p.o. #7 acute blood loss anemia requiring blood transfusion-patient's hemoglobin today was 12.6 Total clinical time spent by myself addressing the patient's medical problems, reviewing all the medical data, and collaborating with patient's care team: 38 minutes Charges/Coding Visit Charges Inpatient E&M: 38934 Subs Hosp L2
[2022-04-27] MEDS: Amox/Clavulanate 875 MG Tablet PO (16:14)
[2022-04-27] MEDS: Pantoprazole Sodium 40 MG Tablet PO (22:07)
[2022-04-28 03:00] VITALS: PULSE 67
[2022-04-28 04:21] VITALS: BP 103/70; PULSE 71; RESP 16; TEMP 37.1; O2SAT 99
[2022-04-28] MEDS: 0.9% Normal Saline 1,000 ML 125 ML IV (06:12)
[2022-04-28] MEDS: Methocarbamol 750 MG Tablet PO (06:12)
[2022-04-28] MEDS: Sucralfate 1 GM Tablet PO ×2 (06:14→09:45)
[2022-04-28] MEDS: Amox/Clavulanate 875 MG Tablet PO (08:18)
[2022-04-28] MEDS: Pantoprazole Sodium 40 MG Tablet PO (08:19)
--- NOTE | 2022-04-28 09:21 | PN.SURG_ITS ---
Subjective Subjective Patient reports no pain. She tolerated diet well. Objective Data Objective Data Vital Signs: Vital Signs Temp Pulse Resp BP Pulse Ox O2 Del Method 98.8 F 71 16 103/70 99 Room Air 04/28/22 04:21 04/28/22 04:21 04/28/22 04:21 04/28/22 04:21 04/28/22 04:21 04/28/22 04:21 Oxygen Delivery Method [4] Room Air Oxygen Delivery Method [3] Room Air Oxygen Delivery Method [2] Room Air Oxygen Delivery Method [1 ( Room Air Initial Baseline)] Oxygen Delivery Method Room Air Weight: 138 lb 14.259 oz Body Mass Index (BMI) 24.5 Intake & Output: Intake and Output for Last 24 Hours 04/26/22 04/27/22 04/28/22 23:59 23:59 23:59 Intake Total 3620 / 3620 3734.58 / 3974.58 1480 / 1480 Output Total Balance 3605 / 3605 3714.58 / 3954.58 1480 / 1480 Lab / Micro Data Result Diagrams: 04/27/22 08:13 04/23/22 17:00 Labs: Laboratory Results - last 24 hr 04/25/22 10:00: Fluid Source PERITONEAL FLUID, Fluid Color , Fluid Appearance TURBID, Fluid WBC 139.800, Fluid RBC 0.240, Fluid Tot Cell Count 141.640 H, Fld Polynuclear WBCs # 107.280, Fld Polynuclear WBCs % 76.7, Fluid Mononuclear WBCs 32.520, Fld Mononuclear WBCs % 23.3, Fluid Neutrophils 100, Fl Pathologist Comment Reviewed, Fluid Comment 2 SEE COMMENT 04/27/22 08:13: Total Bilirubin 0.20, Direct Bilirubin 0.10, AST 25, ALT 34, Alkaline Phosphatase 61, Total Protein 6.4, Albumin 2.8 L, Globulin 3.6 Micro: Microbiology 04/22/22 12:41 Blood Culture (Wb) - Arm Left Blood Culture - Final No growth in 5 days. 04/22/22 13:25 Blood Culture (Wb) - Arm Left Blood Culture - Final No growth in 5 days. 04/25/22 Unknown Fluid - Peritoneal Gram Stain - Final 04/25/22 Unknown Fluid - Peritoneal Body Fluid Culture - Preliminary No growth-Final to follow 01/27/23 15:20 Urine, Clean Catch Urine Culture - Final Presumptive E. coli Rhythm Strip Rhythm Strip: Sinus Tach Rate: 115 Ectopy: None Physical Exam Const oriented x3 Resp normal respiratory effort GI normal to inspection, nondistended, normoactive bowel sounds Assessment & Plan Assessment/Plan (1) Intraabdominal fluid collection: PLAN: GI did identify an ulcer on yesterday's EGD. He reported that his small and may not be the cause of the abscess. I am still not convinced this is coming from gallbladder or other etiology. Her drain was having minimal output and she was tolerating a diet. I removed her drain today. She may continue antibiotics for 10 more days orally and she should continue her PPI for at least 8 weeks. If she develops any pain or symptoms I would repeat imaging at that time. Kenji Garber MD Pager: [facility] [address] [place] [address], [address] [place] [phone] Office:
[2022-04-28 09:38] VITALS: BP 105/71; PULSE 87; RESP 16; TEMP 36.7; O2SAT 99
[2022-04-28] MEDS: ALPRAZolam 0.5 MG Tablet 2 MG PO (09:45)
--- NOTE | 2022-04-28 10:21 | DCINST_ITS ---
Discharge Instructions Diet Discharge Diet: No restrictions Activity Discharge Activity: Return to Normal Activity Weight Bearing Status: Full weight bearing Follow Up Care Test Results: Test results from this visit will be discussed in further detail at your follow- up appointment, if applicable. Discharge Plan Admission Admit Date/Time: 04/22/22 16:49 Primary Reason for Your Visit: pyelonephritis, abdominal abcess, GI bleed, duodenal ulcer Attending Provider: Raheel Mcelroy Primary Care Provider: Brittani Lutz Consulting Providers: Dorothy Quiñonez ; Kenji Garber Instructions Patient Instructions: Mango Guevara Drain Tube Dc, MARJORIE RN Procedural Sedation Additional Instructions / Restrictions: Avoid taking Ibuprofen, aspirin, or Alleve-you can take Tylenol for pain Discharge Orders/Prescriptions Prescriptions: New sucralfate 1 gram Tablet 1 g PO 4X/DAY Qty: 120 0RF pantoprazole 40 mg Tablet,Delayed Release (Dr/Ec) 40 mg PO BID Qty: 60 0RF amoxicillin-pot clavulanate 875-125 mg Tablet 875 mg PO BIDCM Qty: 10 0RF Rx Instructions: take with food Continued ondansetron HCl 8 mg tablet 8 mg PO TID PRN (Reason: Nausea) methocarbamol 750 mg tablet 750 mg PO TID alprazolam 2 mg tablet 2 mg PO BID Label Comments: ONE BY MOUTH TWICE DAILY Referrals / Follow Up: Brittani Lutz [Other] Friend,DO Jw [[facility] Staff - Active Staff] - See Referral Note (in 3 weeks) Care Physician,No Primary [Non-Staff] - Disposition Disposition (needs filled in before D/C Order can be placed): Home, Self Care
[2022-04-28 10:35] VITALS: BP 132/89; PULSE 105; RESP 16; TEMP 36.8; O2SAT 98
--- NOTE | 2022-04-28 12:19 | NURSING ---
discharged with instructions & meds
--- NOTE | 2022-04-29 18:19 | DS.PCM_ITS ---
Providers Date of Admission: 04/22/22 Date of Discharge: 04/28/22 Primary Care Physician: Brittani Lutz Consultations 04/23/22 17:32 Consult: Gastroenterology Routine Consulting Provider: [facility] Reason for Consult: lower GI bleed EMERGENT Consult: No Notified: Yes Date Notified: 04/23/22 Time Notified: 17:32 Method of Notification: Verbal 04/24/22 07:32 Consult: General Surgery Routine Consulting Provider: Kenji Garber Reason for Consult: abnormal abdominal CT EMERGENT Consult: No Notified: Yes Date Notified: 04/24/22 Time Notified: 07:32 Method of Notification: Verbal Reason For Visit: SIRS Diagnosis Discharge Diagnosis (1) Intraabdominal fluid collection: Status: Acute Code(s): R18.8 - Other ascites Plan 1. Acute pyelonephritis-from E. coli-this is resolving at this time, I have changed the patient to oral Augmentin #2 upper GI bleed-resolved at this time-secondary to a duodenal ulcer, patient is to remain on PPI, I will change it to oral from IV #3 chronic opiate abuse-patient is currently in a program at [facility], patient is not currently on Suboxone #4 panic disorder-patient is on Xanax chronically for this, it will be continued while she is in the hospital #5 lactic acidosis-etiology unclear at this point, I do not believe the patient has documented criteria for sepsis, fluids will be administered #6 Right upper quadrant abdominal abscess with drain in place, possibly second gabe to perforated duodenal ulcer versus unknown etiology-patient's antibiotic will be changed to Augmentin p.o. #7 acute blood loss anemia requiring blood transfusion-patient's hemoglobin today was 12.6 Total clinical time spent by myself addressing the patient's medical problems, reviewing all the medical data, and collaborating with patient's care team: 38 minutes Medications at Discharge Home Medications alprazolam 2 mg tablet 2 mg PO BID ANXIETY 04/22/22 methocarbamol 750 mg tablet 750 mg PO TID MUSCLE SPASM 04/22/22 ondansetron HCl 8 mg tablet 8 mg PO TID PRN Nausea 04/22/22 amoxicillin 875 mg-potassium clavulanate 125 mg tablet 875 mg PO BIDCM #10 tabs 04/28/22 pantoprazole 40 mg tablet,delayed release 40 mg PO BID #60 tabs 04/28/22 sucralfate 1 gram tablet 1 g PO 4X/DAY #120 tabs 04/28/22 Hospital Course Operations None Procedures Blood transfusion and - (CT-guided percutaneous drainage of right upper quadrant abscess) Summary of Care Provided Minutes Spent on Discharge: 31 Hospital Course: This 42-year-old white female was seen in the emergency room at [facility] after being brought in from an inpatient detox facility with extreme weakness and malaise, work-up in the emergency room revealed the patient to have a severe urinary tract infection, patient had elevated lactic acid level and she had an episode of bright red rectal bleeding. Patient was admitted to PCU, placed on IV antibiotics, and seen in consultation by gastroenterology who ordered a CT of the abdomen on the patient which showed a collection of fluid and air in the right upper quadrant near the gallbladder. General surgery was consulted, general surgery felt that the patient could have had a perforated ulcer but they recommended not proceeding with an EGD because of the risk for reperforation of the area in case it was a perforated ulcer. CT guided drainage of the abscess area was undertaken and the patient underwent the procedure without complication. Drainage from the patient's abscess grew out only rare yeast. Approximately 2 days following this, she underwent an EGD which showed a duodenal ulcer that was nonbleeding. Patient required 2 units of packed red blood cells to be transfused due to low hemoglobin during her hospital stay. Patient's urine culture grew out E. coli, patient's condition stabilized and on 04/28/2022, her percutaneous drain was removed. Patient was seen and examined on 04/28/2022: On examination she appeared in good health and spirits, she does not appear to be in any distress. Vital signs as documented. Skin warm and dry and without overt rashes. Neck without JVD, thyroid appears normal, trachea is mid line, neck is supple. Lungs clear, normal air movement was noted. Heart exam notable for regular rhythm, normal sounds and absence of murmurs, rubs or gallops. Abdomen unremarkable and without evidence of organomegaly, masses, or abdominal aortic enlargement, bowel sounds are present in all 4 quadrants, no abdominal tenderness was noted. Extremities nonedematous, no cyanosis was noted, no clubbing was noted. Neuro: Cranial nerves II through XII are grossly intact, no focal motor deficits were noted, sensation to light touch and pinprick is intact, motor exam 5/5 throughout. Psych: Patient is alert and oriented x3, she does not appear anxious or depressed, she does not appear agitated. Patient was seen on 04/28/2022 and felt to be stable for discharge back to the inpatient detox facility. Weight / BMI Weight Weight: 63 kg Body Mass Index (BMI) 24.5 ABG / Lab / Microbiology Data Result Diagrams: 04/27/22 08:13 04/23/22 17:00 Microbiology: Microbiology 04/25/22 Unknown Fluid - Peritoneal Gram Stain - Final 04/25/22 Unknown Fluid - Peritoneal Body Fluid Culture - Preliminary Yeast 04/25/22 Unknown Fluid - Peritoneal Anaerobic Culture - Preliminary Checking for anaerobes, further studies to follow. 04/22/22 12:41 Blood Culture (Wb) - Arm Left Blood Culture - Final No growth in 5 days. 04/22/22 13:25 Blood Culture (Wb) - Arm Left Blood Culture - Final No growth in 5 days. 04/22/22 15:20 Urine, Clean Catch Urine Culture - Final Presumptive E. coli D/C Instructions Discharge Diet: No restrictions Weight Bearing Status: Full weight bearing Meaningful Use Info Meaningful Use Diagnoses (Choose all that apply): None applicable Discharge Plan Admission Admit Date/Time: 04/22/22 16:49 Primary Reason for Your Visit: pyelonephritis, abdominal abcess, GI bleed, duodenal ulcer Attending Provider: Raheel Mcelroy Primary Care Provider: Brittani Lutz Consulting Providers: Dorothy Quiñonez ; Kenji Garber Instructions Patient Instructions: Mango Guevara Drain Tube Raymundo, MARJORIE RN Procedural Sedation Additional Instructions / Restrictions: Avoid taking Ibuprofen, aspirin, or Alleve-you can take Tylenol for pain Discharge Orders/Prescriptions Prescriptions: New sucralfate 1 gram Tablet 1 g PO 4X/DAY Qty: 120 0RF pantoprazole 40 mg Tablet,Delayed Release (Dr/Ec) 40 mg PO BID Qty: 60 0RF amoxicillin-pot clavulanate 875-125 mg Tablet 875 mg PO BIDCM Qty: 10 0RF Rx Instructions: take with food Continued ondansetron HCl 8 mg tablet 8 mg PO TID PRN (Reason: Nausea) methocarbamol 750 mg tablet 750 mg PO TID alprazolam 2 mg tablet 2 mg PO BID Label Comments: ONE BY MOUTH TWICE DAILY Referrals / Follow Up: Brittani Lutz [Other] Friend,DO Jw [Med Staff - Active Staff] - See Referral Note (in 3 weeks) Care Physician,No Primary [Non-Staff] - Disposition Disposition (needs filled in before D/C Order can be placed): Home, Self Care Charges/Coding Visit Charges Inpatient E&M: 85011 Disch Hosp >30min
== END 2022-04-28 12:17 | disposition home or self-care (01) | DRG 463 ==
LOC: ED 15:16 → PCU 17:25
PROVIDERS: Anesthesiology; Internal Medicine Gastroenterology; Admitting Provider Student in an Organized Health Care Education/Training Program; Emergency Provider Emergency Medicine; Visit Provider Internal Medicine
PROC: 0DJ08ZZ Inspection of Upper Intestinal Tract, Via Natural or Artificial Opening Endoscopic (ICD-10-PCS; CPT 43235; principal; 2022-04-27 12:10)
DX: N10 Acute pyelonephritis (principal); K65.1 Peritoneal abscess; K26.4 Chronic or unspecified duodenal ulcer with hemorrhage; E87.20 Acidosis, unspecified; R18.8 Other ascites; D62 Acute posthemorrhagic anemia; L02.211 Cutaneous abscess of abdominal wall; F11.10 Opioid abuse, uncomplicated; E86.0 Dehydration; F41.9 Anxiety disorder, unspecified; F17.210 Nicotine dependence, cigarettes, uncomplicated; K20.80 Other esophagitis without bleeding; K44.9 Diaphragmatic hernia without obstruction or gangrene; R74.02 Elevation of levels of lactic acid dehydrogenase [LDH]; B96.20 Unspecified Escherichia coli [E. coli] as the cause of diseases classified elsewhere; F41.0 Panic disorder [episodic paroxysmal anxiety]
CPT/HCPCS: 71045; 74176; 74177; 75989; 80048; 80053; 80076; 80307; 81001; 83605; 85014; 85018; 85025; 85610; 85730; 86850; 86900; 86901; 86920; 86922; 87040; 87070; 87075; 87077; 87086; 87088; 87186; 87205; 88305; 88313; 88342; 89050; 93005; 99156; 99285; J7030; J7040; J7050; J7120; P9016; Q9967; A4216; J2405